=== PATIENT | male | born 1945 | race Caucasian/White ===

== ENCOUNTER 2016-06-25 14:08 | Inpatient (IN) | payer OTHER ==
[2016-06-25 14:18] VITALS: BMI 27.2
--- NOTE | 2016-06-25 14:56 | PDOC ---
History of Present Illness <Ronnie Buenrostro - Last Filed: 06/25/16 16:25> - General History Source: Patient, Old Records Exam Limitations: No Limitations - History of Present Illness Initial Comments: 06/25/16 15:55 The patient is a 71 year old male with a significant past medical history of cholecystectomy, prostate ca s/p prostatectomy, GERD, bilateral cataract surgery who presents to the emergency department sent by his PMD Dr. Goldman for abnormal labs. The patient states he has been experiencing dark urine for the last 6 weeks. He has also been experiencing dyspnea on exertion for the last week, and that is when his daughter convinced him to see his PMD. The patient had routine lab work done yesterday, and was sent to the ED with abnormal labs of Hgb 5.0, WBC 1.4, plt normal, TBili 4.0. Hepatitis panel negative. The patient currently denies any abdominal pain, chest pain, palpitations, or lightheadedness. Per his children, he is more pale than usual and he has also lost some weight. The patient denies dysuria and hematuria. He denies any rectal bleeding. He denies any nausea or vomiting. PMD: Dr. Goldman <Fela De Santiago - Last Filed: 06/25/16 16:36> - General Chief Complaint: Revisit, Lab Variance Stated Complaint: ABNORMAL BLOOD WORK Time Seen by Provider: 06/25/16 14:12 Past History - Past Medical History Anemia: Yes - Surgical History Cholecystectomy: Yes - Psycho/Social/Smoking Cessation Hx Suicidal Ideation: No Smoking History: Never smoked Hx Alcohol Use: No Drug/Substance Use Hx: No Substance Use Type: None <Ronnie Buenrostro - Last Filed: 06/25/16 16:25> <Fela De Santiago - Last Filed: 06/25/16 16:36> - Past Medical History Allergies/Adverse Reactions: Allergies Allergy/AdvReac Type Severity Reaction Status Date / Time No Known Allergies Allergy Verified 06/25/16 14:12 Home Medications: Ambulatory Orders Esomeprazole Magnesium [Nexium] 40 mg PO DAILY 02/06/14 Amoxicillin - [Amoxicillin 500mg Capsule -] 0 mg PO BID 06/25/16 Review of Systems - Review of Systems Able to Perform ROS?: Yes Comments:: 06/25/16 15:55 CONSTITUTIONAL: +Fatigue. No fever, no chills EYES: No visual changes ENT: No ear pain, no sore throat CARDIOVASCULAR: No chest pain, no palpitations RESPIRATORY: No cough, no SOB GI: No abdominal pain, no nausea, no vomiting, no constipation, no diarrhea GENITOURINARY: +Hematuria. No dysuria, no frequency MUSCULOSKELETAL: No back pain, no joint pain, no myalgias SKIN: No rash NEURO: No headache <JonnathanFela - Last Filed: 06/25/16 16:36> *Physical Exam - Vital Signs Last Vital Signs Temp Pulse Resp BP Pulse Ox 98.8 F 72 16 127/53 99 06/25/16 14:12 06/25/16 14:12 06/25/16 14:12 06/25/16 14:12 06/25/16 14:12 <Ronnie Buenrostro - Last Filed: 06/25/16 16:25> - Vital Signs Last Vital Signs Temp Pulse Resp BP Pulse Ox 98.8 F 72 16 127/53 99 06/25/16 14:12 06/25/16 14:12 06/25/16 14:12 06/25/16 14:12 06/25/16 14:12 - Physical Exam Comments: 06/25/16 16:34 CONSTITUTIONAL: +Pale appearing; well-nourished; in no apparent distress. HEAD: Normocephalic; atraumatic EYES: PERRL; EOM intact; +pale conjunctiva ENMT: External appears normal; normal oropharynx NECK: Supple; non-tender; no cervical lymphadenopathy CARD: Normal S1, S2; no murmurs, rubs, or gallops RESP: Normal chest excursion with respiration; breath sounds clear and equal bilaterally; no wheezes, rhonchi, or rales ABD: Soft, non-distended; non-tender; no palpable organomegaly, no palpable hernias EXT: Normal ROM in all four extremities; non-tender to palpation; distal pulses intact SKIN: Warm, dry, no rash NEURO: No focal neurological deficiencies. <Fela De Santiago - Last Filed: 06/25/16 16:36> Heart Score/ECG Review - ECG Intrepretation Comment:: 06/25/16 15:55 Vent rate: 73 bpm AK interval: 128 ms QRS duration: 84 ms Normal sinus rhythm Normal EKG <JonnathanFela - Last Filed: 06/25/16 16:36> ED Treatment Course - LABORATORY CBC & Chemistry Diagram: 06/25/16 14:45 06/25/16 14:45 <Ronnie Buenrostro - Last Filed: 06/25/16 16:25> - LABORATORY CBC & Chemistry Diagram: 06/25/16 14:45 06/25/16 14:45 <JonnathanFela - Last Filed: 06/25/16 16:36> Medical Decision Making - Medical Decision Making 06/25/16 16:30 Patient is a pale appearing 71-year-old male who presents with signs and symptoms of what appears to be acute hemolytic anemia with pallor, dyspnea with minimal exertion, call her colored urine over. Of a month and a half, severe leukopenia and severe anemia. Patient is hemodynamically stable. CBC reveals WBCs of 1.4 and H&H of 4 and 15. Reticulocyte count is noted to be elevated. Total bilirubin is 2.8 which appears to be decreased from value obtained by the primary care physician 24 hours previously. LDH is also noted to be elevated. Haptoglobin is pending. Will discuss with hematology/oncology. Will hold off on transfusing packed cells at this time. <Ronnie Buenrostro - Last Filed: 06/25/16 16:25> - Medical Decision Making 06/25/16 16:[address] Sanz/Dr. Page office at [phone]. Was told Dr. Sanz is in the office and will call back. 06/25/16 16:34 Second call placed to Dr. Sanz office. Awaiting call back. <JonnathanFela - Last Filed: 06/25/16 16:36> *DC/Admit/Observation/Transfer - Discharge Dispostion Admit: Yes - Attestations Physician Attestion: 06/25/16 16:30 The documentation was prepared by the scribe under my direct supervision. I have reviewed the documentation which correctly represents the findings, medical decision-making and critical action taken by me. <Ronnie Buenrostro - Last Filed: 06/25/16 16:25> - Attestations Scribe Attestion: 06/25/16 15:25 Documentation prepared by Fela De Santiago, acting as medical billing supervisor for Ronnie Buenrostro MD. <Fela De Santiago - Last Filed: 06/25/16 16:36> Diagnosis at time of Disposition: Hemolytic anemia Qualifiers: Hemolytic anemia type: acquired, unspecified Qualified Code(s): D59.9 - Acquired hemolytic anemia, unspecified - Referrals Referrals: Bernardo Goldman MD [Primary Care Provider] -
[2016-06-25 15:21] LABS: MCH 38.7 pg (25.7-33.7); MCHC 32.5 g/dl (32.0-35.9); MEAN CELL VOLUME 119.2 fl (80-96); MEAN PLT VOLUME 7.5 fl (7.5-11.1); PLATELET COUNT 201 K/MM3 (134-434); RDW 14.2 % (11.9-15.9)
[2016-06-25 15:31] LABS: ALBUMIN 3.2 g/dl (3.4-5.0); ANION GAP 9 (8-16); CALCIUM 7.7 mg/dL (8.5-10.1); CO2 24 mmol/L (21-32); CREATININE 0.7 mg/dL (0.7-1.3); GLUCOSE,RANDOM 107 mg/dL (74-106); SGOT/AST 41 U/L (15-37); SGPT/ALT 33 U/L (12-78); WHITE BLOOD COUNT 1.5 K/mm3 (4.0-10.0)
[2016-06-25 15:32] LABS: INR 1.33 (0.82-1.09); PROTHROMBIN TIME (PATIENT) 14.7 SEC (9.98-11.88)
[2016-06-25 15:34] LABS: ALK PHOS 89 U/L (45-117); BILIRUBIN,TOTAL 2.8 mg/dL (0.2-1.0); TOT PROT 5.9 g/dl (6.4-8.2); TROPONIN I < 0.02 ng/ml (0.00-0.05)
[2016-06-25 15:58] LABS: LDH 547 U/L (87-241)
--- NOTE | 2016-06-25 16:03 | EKG ---
Test Reason : Blood Pressure : / mmHG Vent. Rate : 073 BPM Atrial Rate : 073 BPM P-R Int : 128 ms QRS Dur : 084 ms QT Int : 402 ms P-R-T Axes : 054 043 024 degrees QTc Int : 442 ms NORMAL SINUS RHYTHM NORMAL ECG NO PREVIOUS ECGS AVAILABLE Confirmed by PHUONG MCCOLLUM MD ([id number]) on 06/25/2016 4:03:25 PM Referred By: Confirmed By:PHUONG MCCOLLUM MD
[2016-06-25 17:58] LABS: OVALOCYTES 1+; PLATELET ESTIMATE ADEQUATE (NORMAL); POIKILOCYTOSIS 1+; POLYCHROMASIA 1+; TEAR DROP CELLS RARE
[2016-06-25] MEDS ORDERED: PANTOPRAZOLE SODIUM 40 MG in SODIUM CHLORIDE 100 ML IVPB SCH (20:00)
[2016-06-25] MEDS ORDERED: PANTOPRAZOLE SODIUM 100 ML IVPB ONE (20:09)
--- NOTE | 2016-06-25 20:20 | CONSULT ---
Consult - text type - Consultation Consultation Note: Patient seen and examined The patient is a 71 year old male with a significant past medical history of cholecystectomy, prostate ca s/p prostatectomy, GERD, bilateral cataract surgery who presents to the emergency department sent by his PMD Dr. Goldman for abnormal labs. The patient states he has been experiencing dark urine for the last few weeks. He has also been experiencing dyspnea on exertion for the last week, and that is when his daughter convinced him to see his PMD. The patient had routine lab work done yesterday, and was sent to the ED with abnormal labs of Hgb 5.0, WBC 1.4, plt normal, TBili 4.0. Hepatitis panel negative. The patient currently denies any abdominal pain, chest pain, palpitations, or lightheadedness. Per his children, he is more pale than usual and he has also lost some weight. The patient denies dysuria and hematuria. He denies any rectal bleeding. He denies any nausea or vomiting. Reports shoulder aches, elbow pains and low back pain he had several episodes last year Also some URI and cough and received 2 doses of amoxicillin Reports exertional SOB/dizziness and paliptations Past History - Past Medical History Anemia: Yes - Surgical History Cholecystectomy: Yes - Psycho/Social/Smoking Cessation Hx nonsmoker Allergies/Adverse Reactions: Allergies Allergy/AdvReac Type Severity Reaction Status Date / Time No Known Allergies Allergy Verified 06/25/16 14:12 Home Medications: Ambulatory Orders Esomeprazole Magnesium [Nexium] 40 mg PO DAILY 02/06/14 Amoxicillin - [Amoxicillin 500mg Capsule -] 0 mg PO BID 06/25/16 *Physical Exam - Vital Signs Last Vital Signs Temp Pulse Resp BP Pulse Ox 98.8 F 72 16 127/53 99 06/25/16 14:12 06/25/16 14:12 06/25/16 14:12 06/25/16 14:12 06/25/16 14:12 HEENT: MAURISIO, EOM Intact Cor: RSR, No murmurs, No gallops Lungs: Clear to P&A Abd: Soft, Normal bowel sounds, No organomegaly Ext:No significant edema Skin: No rashes, Integument intact A/P In brief, 71 y/o with exertional dyspnea, fatigue, mild cough, dark urine, exertional SOB/dizziness, shoulder aches Hgb 4.9/LDH 500s/Increased indirect bili Ankita 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 W/U ongoing to r/o allo ab. discussed with patient and family about transfusiong least incompatible unit Will start allopurinol/steroids/protonix ICU monitoring discussed with icu staff ? autoimmune etiology r/o viral/lymphoproliferative diosrders
[2016-06-25] MEDS: methylPREDNISolone NA SUCC 125 MG/2 ML VIAL IVPB SCH (23:00)
--- NOTE | 2016-06-25 23:09 | CONSULT ---
Consult Consult Specialty:: Pulm/CC - History of Present Illness History of Present Illness: Pt is a 71yr old man with PMHx of gallbladder ca s/p cholecystectomy (1998), prostate ca s/p prostectomy (2004) and GERD. He presents to the ER from PCP office for anemia. In the ER found to have WBC of 1.5 and h/h of 4.9/15, LD 547 , elevated direct and total bili. Pt is hemodynamically stable at rest but becomes very dyspneic with minimal exertion. Admitted to the ICU for further management. Upon assessment, pt is alert, denies chest pain/headache/sob/n/v and endorses BASILIO. 114/55, HR 60s (sinus on tele) 100% on 4LNC, 98.2. - History Source History Provided By: Patient, Medical Record Limitations to Obtaining History: No Limitations - Alcohol/Substance Use Hx Alcohol Use: No - Smoking History Smoking history: Never smoked Home Medications - Allergies Allergies/Adverse Reactions: Allergies Allergy/AdvReac Type Severity Reaction Status Date / Time No Known Allergies Allergy Verified 06/25/16 14:12 - Home Medications Home Medications: Ambulatory Orders Esomeprazole Magnesium [Nexium] 40 mg PO DAILY 02/06/14 Amoxicillin - [Amoxicillin 500mg Capsule -] 0 mg PO BID 06/25/16 Review of Systems - Review of Systems Constitutional: reports: Lethargy, Unintentional Wgt. Loss, Weakness HENT: denies: Epistaxis Cardiovascular: denies: Chest Pain Respiratory: reports: SOB on Exertion Gastrointestinal: reports: Constipation. denies: Nausea, Vomiting Genitourinary: denies: Dysuria Physical Exam Vital Signs: Vital Signs Period Temp Pulse Resp BP Sys/Engel Pulse Ox Last 24 Hr 98.2 F-98.8 F 67-82 16-22 112-127/53-58 95-100 Intake & Output 06/22/16 06/23/16 06/24/16 06/25/16 23:59 23:59 23:59 23:59 Weight 190 lb 1.6 oz Constitutional: Yes: Well Nourished, No Distress, Calm Eyes: Yes: WNL, PERRL HENT: Yes: WNL Neck: Yes: WNL Cardiovascular: Yes: S1, S2, Other (sinus on tele) Respiratory: Yes: CTA Bilaterally, On Nasal O2, SOB on Exertion. No: Rhonchi, SOB, Tachypnea, Wheezes Gastrointestinal: Yes: Normal Bowel Sounds, Soft, Abdomen, Obese ...Rectal Exam: No: Guaiac Negative Renal/: No: CVA Tenderness - Left, CVA Tenderness - Right Musculoskeletal: Yes: WNL Extremities: Yes: WNL Edema: Yes Edema: LLE: Trace, RLE: Trace Peripheral Pulses WNL: Yes (+2 bilateral pedal pulses ) Integumentary: Yes: WNL Neurological: Yes: WNL Psychiatric: Yes: WNL Labs: Abnormal Lab Results 06/25/16 06/25/16 06/25/16 14:30 14:45 14:45 WBC 1.5 L RBC 1.26 L Hgb 4.9 L* Hct 15.0 L MCV 119.2 H Retic Count 6.70 H INR 1.33 H Random Glucose Calcium Total Bilirubin Direct Bilirubin AST LD Total Total Protein Albumin Antibody Screen Prewarmed Antibody Srcn Crossmatch 06/25/16 06/25/16 06/25/16 14:45 15:12 15:56 WBC RBC Hgb Hct MCV Retic Count INR Random Glucose 107 H Calcium 7.7 L Total Bilirubin 2.8 H Direct Bilirubin 1.0 H AST 41 H LD Total 547 H Total Protein 5.9 L Albumin 3.2 L Antibody Screen Positive H Prewarmed Antibody Srcn Positive H Crossmatch See Detail See Detail Imaging - Results Chest X-ray: Report Reviewed, Image Reviewed Assessment/Plan Pt is a 71yr old man with PMHx of gallbladder ca s/p cholecystectomy (1998), prostate ca s/p prostectomy (2004) and GERD. Now in the ICU for profound hemolytic anemia and leukopenia. Pulm: -O2 prn for sat >94% -Incentive spirometer ID: -f/u cultures -f/u CRP -Low threshold to start antibiotics (currently afebrile, vital signs stable, no known source of infection) Heme -Dr Sanz following -Steroids/allopurinal/transfusion per heme Renal -IVF as tolerated -Replete electrolytes prn Neuro -Pain management Prophylactic -Reverse contact precautions -Fall precautions -Continue home ppi
[2016-06-25] MEDS: ALLOPURINOL 300 MG TABLET (FP) PO SCH (23:47)
[2016-06-25] MEDS: LACTATED RINGERS SOLUTION 1,000 ML IV SCH (23:50)
[2016-06-26] MEDS ORDERED: guaiFENesin/D-METHORPHAN HB 10 ML UNIT-DOSE CUPS PO PRN (00:03)
[2016-06-26] MEDS ORDERED: ACETAMINOPHEN 500 MG TABLET (FP) PO ONE (01:54)
[2016-06-26 08:41] LABS: BASOPHIL 0.2 % (0-2.0); MCH 34.8 pg (25.7-33.7); MCHC 32.9 g/dl (32.0-35.9); MEAN CELL VOLUME 105.7 fl (80-96); MEAN PLT VOLUME 7.5 fl (7.5-11.1); NEUTROPHILS 76.7 % (42.8-82.8); PLATELET COUNT 198 K/MM3 (134-434); RDW 27.4 % (11.9-15.9)
[2016-06-26 08:47] LABS: WHITE BLOOD COUNT 1.6 K/mm3 (4.0-10.0)
[2016-06-26] MEDS ORDERED: PIPERACILLIN/TAZOB 3.375 GM 50 ML IVPB ONE (08:55)
[2016-06-26] MEDS ORDERED: PT OWN MED DRAWER 7, Y5N ONE (08:55)
[2016-06-26 09:07] LABS: ALBUMIN 3.1 g/dl (3.4-5.0); ANION GAP 6 (8-16); CALCIUM 7.9 mg/dL (8.5-10.1); CO2 26 mmol/L (21-32); CREATININE 0.7 mg/dL (0.7-1.3); GLUCOSE,RANDOM 132 mg/dL (74-106); SGOT/AST 38 U/L (15-37); SGPT/ALT 34 U/L (12-78); URIC ACID 3.4 mg/dL (2.6-7.2)
[2016-06-26] MEDS: FOLIC ACID 1 MG TABLET (FP) PO SCH (09:07)
[2016-06-26] MEDS: methylPREDNISolone NA SUCC 125 MG/2 ML VIAL IVPB SCH (09:07)
[2016-06-26 09:11] LABS: ALK PHOS 95 U/L (45-117); BILIRUBIN,TOTAL 2.7 mg/dL (0.2-1.0); LDH 526 U/L (87-241); MAGNESIUM 2.1 mg/dL (1.8-2.4); PHOSPHOROUS 3.6 mg/dL (2.5-4.9); TROPONIN I < 0.02 ng/ml (0.00-0.05)
[2016-06-26 09:18] LABS: INR 1.28 (0.82-1.09); PROTHROMBIN TIME (PATIENT) 14.2 SEC (9.98-11.88)
[2016-06-26 09:20] LABS: ACTIVATED PTT 23.3 SECONDS (26.9-34.4)
--- NOTE | 2016-06-26 09:25 | PN ---
Progress Note (short form) - Note Progress Note: ID Full note dictated Gabby positive hemolytic anemia Describes recent URI along with his son in law and daughter having the same symptoms couph chest congestion coryza Selected Entries 06/25/16 06/25/16 14:12 21:29 Temperature 98.8 F Pulse Rate 72 Pulse Rate [ 75 Left Apical] Blood Pressure 112/58 [Left Arm] Exam Rales RLL Cor S1 S2 Abd Soft nontender Microbiology 06/26/16 02:36 Nasopharyngeal Swab Influenza Types A,B Antigen (PEPE) - Final 06/26/16 02:36 Nasopharyngeal Swab - Final Laboratory Tests 06/25/16 06/26/16 14:45 08:17 Hgb 6.1 L* D MCV 105.7 H MCHC 32.9 Plt Count 198 BUN 13 Creatinine 0.7 Total Bilirubin 2.8 H Direct Bilirubin 1.0 H LD Total 547 H Assessment "Warm" Cooms positive hemolytic anemia less likely Mycoplasma related ? Pneumonia by exam Plan Cold agglutinins Mycoplasma PCR in viral kit Problem List - Problems (1) Hemolytic anemia Code(s): D58.9 - HEREDITARY HEMOLYTIC ANEMIA, UNSPECIFIED Qualifiers: Hemolytic anemia type: acquired, unspecified Qualified Code(s): D59.9 - Acquired hemolytic anemia, unspecified; D59 - Acquired hemolytic anemia (2) Upper respiratory disease Code(s): J39.9 - DISEASE OF UPPER RESPIRATORY TRACT, UNSPECIFIED
[2016-06-26] MEDS: PANTOPRAZOLE SODIUM 100 ML IVPB SCH (09:51)
[2016-06-26] MEDS ORDERED: methylPREDNISolone NA SUCC 125 MG/2 ML VIAL IVPB SCH (10:00)
[2016-06-26] MEDS: ALLOPURINOL 300 MG TABLET (FP) PO SCH (10:56)
--- NOTE | 2016-06-26 11:22 | HP ---
Admitting History and Physical - Primary Care Physician PCP: Bernardo Goldman - Admission Chief Complaint: dark color urine and SOB - abnormal labs History of Present Illness: ER HISTORY General History Source: Patient, Old Records Exam Limitations: No Limitations - History of Present Illness Initial Comments: 06/25/16 15:55 The patient is a 71 year old male with a significant past medical history of cholecystectomy, prostate ca s/p prostatectomy, GERD, bilateral cataract surgery who presents to the emergency department sent by his PMD Dr. Goldman for abnormal labs. The patient states he has been experiencing dark urine for the last 6 weeks. He has also been experiencing dyspnea on exertion for the last week, and that is when his daughter convinced him to see his PMD. The patient had routine lab work done yesterday, and was sent to the ED with abnormal labs of Hgb 5.0, WBC 1.4, plt normal, TBili 4.0. Hepatitis panel negative. The patient currently denies any abdominal pain, chest pain, palpitations, or lightheadedness. Per his children, he is more pale than usual and he has also lost some weight. The patient denies dysuria and hematuria. He denies any rectal bleeding. He denies any nausea or vomiting. Pt seen by me in ICU On Neutrapenic precautions. Pt gives a history of cold like symptoms of cough, runny nose, congestion a few weeks ago , was taking OTC meds for it. His family members also had same symptoms prior. He is admitted to ICU for hemolytic anemia. Denies abd pain , dizziness, SOB. His urine is dark. No BM today Seen by Hematology and received one unit of PRBC History Source: Patient Limitations to Obtaining History: No Limitations - Past Medical History Gastrointestinal: Yes: GERD Renal/: Yes: Cancer (prostate CA s/p prostatectomy) Additional Past Medical History: B/L cataract extraction - Past Surgical History Past Surgical History: Yes: Cataract Removal - Smoking History Smoking history: Never smoked - Alcohol/Substance Use Hx Alcohol Use: No Home Medications - Allergies Allergies/Adverse Reactions: Allergies Allergy/AdvReac Type Severity Reaction Status Date / Time No Known Allergies Allergy Verified 06/25/16 14:12 - Home Medications Home Medications: Ambulatory Orders Esomeprazole Magnesium [Nexium] 40 mg PO DAILY 02/06/14 Amoxicillin - [Amoxicillin 500mg Capsule -] 0 mg PO BID 06/25/16 Review of Systems - Review of Systems Constitutional: reports: Unintentional Wgt. Loss. denies: Chills, Fever, Lethargy, Loss of Appetite, Weakness Cardiovascular: reports: Shortness of Breath. denies: Chest Pain Respiratory: denies: Cough, Hemoptysis, Wheezing Neurological: denies: Dizziness Physical Examination Vital Signs: Vital Signs Temperature 98.0 F 06/26/16 10:00 Pulse Rate 60 06/26/16 10:00 Respiratory Rate 20 06/26/16 10:00 Blood Pressure 111/83 06/26/16 10:00 O2 Sat by Pulse Oximetry (%) 99 06/26/16 11:04 Constitutional: Yes: No Distress, Calm Cardiovascular: Yes: Regular Rate and Rhythm Respiratory: Yes: CTA Bilaterally Gastrointestinal: Yes: Normal Bowel Sounds, Soft. No: Distention, Tenderness Edema: No ...Motor Strength: WNL Psychiatric: Yes: Alert, Oriented Labs: CBC, BMP 06/26/16 08:17 06/26/16 08:17 Imaging - Results Chest X-ray: Image Reviewed (no infiltrate) Cat Scan: Report Reviewed EKG: Image Reviewed (NSR) Problem List - Problems (1) Hemolytic anemia Code(s): D58.9 - HEREDITARY HEMOLYTIC ANEMIA, UNSPECIFIED Qualifiers: Hemolytic anemia type: acquired, unspecified Qualified Code(s): D59.9 - Acquired hemolytic anemia, unspecified; D59 - Acquired hemolytic anemia (2) Upper respiratory disease Code(s): J39.9 - DISEASE OF UPPER RESPIRATORY TRACT, UNSPECIFIED (3) Pneumonia Code(s): J18.9 - PNEUMONIA, UNSPECIFIED ORGANISM (4) Pleural effusion Code(s): J90 - PLEURAL EFFUSION, NOT ELSEWHERE CLASSIFIED (5) Prostate CA Code(s): C61 - MALIGNANT NEOPLASM OF PROSTATE Assessment/Plan PLAN S/p 1 PRBC ICU , ID , Hematology eval noted work up in progress Gabby positive ICU monitoring Solumedrol iv fluids May transfuse one more if ok with Hematology DVT prophylaxis-- SCD
--- NOTE | 2016-06-26 13:18 | PN ---
Progress Note (short form) - Note Progress Note: PAtient seen and examined Had an episode of chest pain/shortness of breath on walking Last Vital Signs Temp Pulse Resp BP Pulse Ox 98.0 F 79 20 114/58 99 06/26/16 10:00 06/26/16 12:00 06/26/16 12:00 06/26/16 12:00 06/26/16 11:04 HEENT: MAURISIO, EOM Intact Oropharynx: No thrush, No mucositis Cor: RSR, No murmurs, No gallops Lungs: Clear to P&A Abd: Soft, Normal bowel sounds, No organomegaly no c/c/edema Abnormal Lab Results 06/25/16 06/25/16 06/25/16 14:30 14:45 14:45 WBC 1.5 L RBC 1.26 L Hgb 4.9 L* Hct 15.0 L MCV 119.2 H RDW Monocytes % ESR Retic Count 6.70 H INR 1.33 H PTT (Actin FS) Chloride Anion Gap Random Glucose Calcium Total Bilirubin Direct Bilirubin AST LD Total C-Reactive Protein Total Protein Albumin Antibody Screen Prewarmed Antibody Srcn Direct Antiglob Test Crossmatch 06/25/16 06/25/16 06/25/16 14:45 14:45 15:12 WBC RBC Hgb Hct MCV RDW Monocytes % ESR Retic Count INR PTT (Actin FS) Chloride Anion Gap Random Glucose 107 H Calcium 7.7 L Total Bilirubin 2.8 H Direct Bilirubin 1.0 H AST 41 H LD Total 547 H C-Reactive Protein 3.2 H Total Protein 5.9 L Albumin 3.2 L Antibody Screen Positive H Prewarmed Antibody Srcn Positive H Direct Antiglob Test Crossmatch See Detail 06/25/16 06/25/16 06/26/16 15:56 17:28 08:17 WBC 1.6 L RBC 1.76 L D Hgb 6.1 L* D Hct 18.6 L D MCV 105.7 H RDW 27.4 H Monocytes % 1.5 L D ESR Retic Count INR PTT (Actin FS) Chloride Anion Gap Random Glucose Calcium Total Bilirubin Direct Bilirubin AST LD Total C-Reactive Protein Total Protein Albumin Antibody Screen Prewarmed Antibody Srcn Direct Antiglob Test Positive H Crossmatch See Detail See Detail 06/26/16 06/26/16 06/26/16 08:17 08:17 08:17 WBC RBC Hgb Hct MCV RDW Monocytes % ESR > 130 H Retic Count INR PTT (Actin FS) Chloride 109 H Anion Gap 6 L Random Glucose 132 H D Calcium 7.9 L Total Bilirubin 2.7 H Direct Bilirubin AST 38 H LD Total 526 H C-Reactive Protein 3.0 H D Total Protein 6.0 L Albumin 3.1 L Antibody Screen Prewarmed Antibody Srcn Direct Antiglob Test Crossmatch 06/26/16 08:30 WBC RBC Hgb Hct MCV RDW Monocytes % ESR Retic Count INR 1.28 H PTT (Actin FS) 23.3 L Chloride Anion Gap Random Glucose Calcium Total Bilirubin Direct Bilirubin AST LD Total C-Reactive Protein Total Protein Albumin Antibody Screen Prewarmed Antibody Srcn Direct Antiglob Test Crossmatch Current Medications Allopurinol (Zyloprim -) 300 mg PO DAILY [facility] Last Admin: 06/26/16 10:56 Dose: 300 mg Folic Acid (Folic Acid -) 1 mg PO DAILY [facility] Last Admin: 06/26/16 09:07 Dose: 1 mg Guaifenesin (Robitussin Dm -) 5 ml PO Q6H PRN PRN Reason: COUGH Last Admin: 06/26/16 00:20 Dose: 5 ml Pantoprazole Sodium (Protonix 40mg Ivpb (Pre-Docked)) 100 mls @ 200 mls/hr IVPB DAILY [facility] Last Admin: 06/26/16 09:51 Dose: 200 mls/hr Lactated Ringer's (Lactated Ringers Solution) 1,000 mls @ 50 mls/hr IV ASDIR [facility] Last Admin: 06/25/16 23:50 Dose: 50 mls/hr Methylprednisolone Sodium Succinate (Solu-Medrol -) 45 mg IVPB BID [facility] A/P 71 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 auto immune disorder
--- NOTE | 2016-06-26 13:24 | PN ---
Teaching Attending Note Name of Resident: Michael Phoenix ATTENDING PHYSICIAN STATEMENT I saw and evaluated the patient. I reviewed the resident's note and discussed the case with the resident. I agree with the resident's findings and plan as documented. SUBJECTIVE: Patient seen and examined in the ICU. Awake and alert. Denies CP or SOB. Some dry cough. Hgb ; 6.1. pRBCs are pending. No BM but had one yesterday w/o blood. No hematuria. Intake & Output 06/23/16 06/24/16 06/25/16 06/26/16 23:59 23:59 23:59 23:59 Intake Total 300 Output Total 400 1200 Balance -400 -900 Weight 190 lb 1.6 oz 189 lb 4.8 oz Last Vital Signs Temp Pulse Resp BP Pulse Ox 98.0 F 79 20 114/58 99 06/26/16 10:00 06/26/16 12:00 06/26/16 12:00 06/26/16 12:00 06/26/16 11:04 Active Medications Allopurinol (Zyloprim -) 300 mg PO DAILY [facility] Last Admin: 06/26/16 10:56 Dose: 300 mg Folic Acid (Folic Acid -) 1 mg PO DAILY [facility] Last Admin: 06/26/16 09:07 Dose: 1 mg Guaifenesin (Robitussin Dm -) 5 ml PO Q6H PRN PRN Reason: COUGH Last Admin: 06/26/16 00:20 Dose: 5 ml Pantoprazole Sodium (Protonix 40mg Ivpb (Pre-Docked)) 100 mls @ 200 mls/hr IVPB DAILY [facility] Last Admin: 06/26/16 09:51 Dose: 200 mls/hr Lactated Ringer's (Lactated Ringers Solution) 1,000 mls @ 50 mls/hr IV ASDIR [facility] Last Admin: 06/25/16 23:50 Dose: 50 mls/hr Methylprednisolone Sodium Succinate (Solu-Medrol -) 45 mg IVPB BID [facility] Constitutional: Yes: NAD, (+) Pallor Eyes: Yes: WNL, PERRL HENT: Yes: WNL Neck: Yes: WNL Cardiovascular: Yes: S1, S2, Other (sinus on tele) Respiratory: Yes: CTA Bilaterally, On Nasal O2, SOB on Exertion. No: Rhonchi, SOB, Tachypnea, Wheezes Gastrointestinal: Yes: Normal Bowel Sounds, Soft, Abdomen, Obese ...Rectal Exam: No: Guaiac Negative Renal/: No: CVA Tenderness - Left, CVA Tenderness - Right Musculoskeletal: Yes: WNL Extremities: Yes: WNL Edema: Yes Edema: LLE: Trace, RLE: Trace Peripheral Pulses WNL: Yes (+2 bilateral pedal pulses ) Integumentary: Yes: WNL Neurological: Yes: WNL Psychiatric: Yes: WNL Labs: Laboratory Results - last 24 hr 06/25/16 06/25/16 06/25/16 14:30 14:45 14:45 WBC 1.5 L RBC 1.26 L Hgb 4.9 L* Hct 15.0 L MCV 119.2 H MCHC 32.5 RDW 14.2 Plt Count 201 MPV 7.5 Neutrophils % 60.0 Lymphocytes % 30.0 Monocytes % 10.0 Eosinophils % Basophils % Differential Comment Manual diff done Platelet Estimate Adequate Platelet Comment Few giant plts Polychromasia 1+ Poikilocytosis 1+ Macrocytosis 3+ Tear Drop Cells Rare Ovalocytes 1+ Morphology Comment Slide scanned ESR Retic Count 6.70 H INR 1.33 H PTT (Actin FS) Fibrinogen Sodium Potassium Chloride Carbon Dioxide Anion Gap BUN Creatinine Creat Clearance w eGFR Random Glucose Uric Acid Calcium Phosphorus Magnesium Total Bilirubin Direct Bilirubin AST ALT Alkaline Phosphatase LD Total Creatine Kinase Troponin I C-Reactive Protein Total Protein Albumin Vitamin B12 Rheumatoid Factor Monoscreen Blood Type Antibody Screen Prewarmed Antibody Srcn Direct Antiglob Test Crossmatch Spec Expiration Date 06/25/16 06/25/16 06/25/16 14:45 14:45 15:12 WBC RBC Hgb Hct MCV MCHC RDW Plt Count MPV Neutrophils % Lymphocytes % Monocytes % Eosinophils % Basophils % Differential Comment Platelet Estimate Platelet Comment Polychromasia Poikilocytosis Macrocytosis Tear Drop Cells Ovalocytes Morphology Comment ESR Retic Count INR PTT (Actin FS) Fibrinogen Sodium 140 Potassium 3.8 Chloride 107 Carbon Dioxide 24 Anion Gap 9 BUN 13 Creatinine 0.7 Creat Clearance w eGFR > 60 Random Glucose 107 H Uric Acid Calcium 7.7 L Phosphorus Magnesium Total Bilirubin 2.8 H Direct Bilirubin 1.0 H AST 41 H ALT 33 Alkaline Phosphatase 89 LD Total 547 H Creatine Kinase 54 Troponin I < 0.02 C-Reactive Protein 3.2 H Total Protein 5.9 L Albumin 3.2 L Vitamin B12 Rheumatoid Factor Monoscreen Blood Type O POSITIVE Antibody Screen Positive H Prewarmed Antibody Srcn Positive H Direct Antiglob Test Crossmatch See Detail Spec Expiration Date 06/25/16 06/25/16 06/25/16 15:40 15:56 17:28 WBC RBC Hgb Hct MCV MCHC RDW Plt Count MPV Neutrophils % Lymphocytes % Monocytes % Eosinophils % Basophils % Differential Comment Platelet Estimate Platelet Comment Polychromasia Poikilocytosis Macrocytosis Tear Drop Cells Ovalocytes Morphology Comment ESR Retic Count INR PTT (Actin FS) Fibrinogen Sodium Potassium Chloride Carbon Dioxide Anion Gap BUN Creatinine Creat Clearance w eGFR Random Glucose Uric Acid Calcium Phosphorus Magnesium Total Bilirubin Direct Bilirubin Cancelled AST ALT Alkaline Phosphatase LD Total Cancelled Creatine Kinase Troponin I C-Reactive Protein Total Protein Albumin Vitamin B12 Rheumatoid Factor Monoscreen Blood Type O POSITIVE Antibody Screen Prewarmed Antibody Srcn Direct Antiglob Test Positive H Crossmatch See Detail See Detail Spec Expiration Date 06/25/16 06/26/16 06/26/16 21:30 08:17 08:17 WBC 1.6 L RBC 1.76 L D Hgb 6.1 L* D Hct 18.6 L D MCV 105.7 H MCHC 32.9 RDW 27.4 H Plt Count 198 MPV 7.5 Neutrophils % 76.7 D Lymphocytes % 21.6 D Monocytes % 1.5 L D Eosinophils % 0.0 Basophils % 0.2 Differential Comment Platelet Estimate Platelet Comment Polychromasia Poikilocytosis Macrocytosis Tear Drop Cells Ovalocytes Morphology Comment ESR Retic Count INR PTT (Actin FS) Fibrinogen Sodium 141 Potassium 4.2 Chloride 109 H Carbon Dioxide 26 Anion Gap 6 L BUN 10 D Creatinine 0.7 Creat Clearance w eGFR > 60 Random Glucose 132 H D Uric Acid 3.4 Calcium 7.9 L Phosphorus Magnesium Total Bilirubin 2.7 H Direct Bilirubin AST 38 H ALT 34 Alkaline Phosphatase 95 LD Total 526 H Creatine Kinase 43 Troponin I < 0.02 C-Reactive Protein Total Protein 6.0 L Albumin 3.1 L Vitamin B12 564 Rheumatoid Factor Monoscreen Blood Type Antibody Screen Prewarmed Antibody Srcn Direct Antiglob Test Crossmatch Spec Expiration Date 06/26/16 06/26/16 06/26/16 08:17 08:17 08:17 WBC RBC Hgb Hct MCV MCHC RDW Plt Count MPV Neutrophils % Lymphocytes % Monocytes % Eosinophils % Basophils % Differential Comment Platelet Estimate Platelet Comment Polychromasia Poikilocytosis Macrocytosis Tear Drop Cells Ovalocytes Morphology Comment ESR > 130 H Retic Count INR PTT (Actin FS) Fibrinogen Sodium Potassium Chloride Carbon Dioxide Anion Gap BUN Creatinine Creat Clearance w eGFR Random Glucose Uric Acid Calcium Phosphorus 3.6 Magnesium 2.1 Total Bilirubin Direct Bilirubin AST ALT Alkaline Phosphatase LD Total Creatine Kinase Cancelled Troponin I Cancelled C-Reactive Protein 3.0 H D Total Protein Albumin Vitamin B12 Rheumatoid Factor < 10.0 Monoscreen Blood Type Antibody Screen Prewarmed Antibody Srcn Direct Antiglob Test Crossmatch Spec Expiration Date 06/26/16 06/26/16 08:30 10:35 WBC RBC Hgb Hct MCV MCHC RDW Plt Count MPV Neutrophils % Lymphocytes % Monocytes % Eosinophils % Basophils % Differential Comment Platelet Estimate Platelet Comment Polychromasia Poikilocytosis Macrocytosis Tear Drop Cells Ovalocytes Morphology Comment ESR Retic Count INR 1.28 H PTT (Actin FS) 23.3 L Fibrinogen 305.0 Sodium Potassium Chloride Carbon Dioxide Anion Gap BUN Creatinine Creat Clearance w eGFR Random Glucose Uric Acid Calcium Phosphorus Magnesium Total Bilirubin Direct Bilirubin AST ALT Alkaline Phosphatase LD Total Creatine Kinase Troponin I C-Reactive Protein Total Protein Albumin Vitamin B12 Rheumatoid Factor Monoscreen Negative Blood Type Antibody Screen Prewarmed Antibody Srcn Direct Antiglob Test Crossmatch Spec Expiration Date Assessment/Plan Pt is a 71yr old man with PMHx of gallbladder ca s/p cholecystectomy (1998), prostate ca s/p prostectomy (2004) and GERD. Now in the ICU for profound hemolytic anemia and leukopenia. Problem List - Problems (1) Hemolytic anemia Code(s): D58.9 - HEREDITARY HEMOLYTIC ANEMIA, UNSPECIFIED Qualifiers: Hemolytic anemia type: acquired, unspecified Qualified Code(s): D59.9 - Acquired hemolytic anemia, unspecified; D59 - Acquired hemolytic anemia (2) Upper respiratory disease Code(s): J39.9 - DISEASE OF UPPER RESPIRATORY TRACT, UNSPECIFIED IMP: Gallbladder CA Cholecystectomy Prostate CA Prostatectomy GERD RLL PNA suspected Pleural Effusion PLAN: Transfusional support Medrol Allopurinol O2 as needed Check cultures SCDs IVF Dr Sevilla CCTime 35"
[2016-06-26] MEDS ORDERED: ACETAMINOPHEN 325 MG TABLET (FP) ONE (14:08)
[2016-06-26] MEDS ORDERED: ACETAMINOPHEN 325 MG TABLET (FP) PO ONE (14:21)
--- NOTE | 2016-06-26 15:28 | PN ---
Physical Exam: SUBJECTIVE: Patient seen and examined at bedside in ICU this morning. AAO and in a pleasant mood. States he feels much better than yesterday. Afebrile overnight without any adverse reactions to transfusions or medications given. Understands planned course of treatment & need for further diagnostic testing. Agrees with plan of care. OBJECTIVE: Vital Signs Period Temp Pulse Resp BP Sys/Engel Pulse Ox Last 24 Hr 97.6 F-98.7 F 56-82 18-23 111-142/47-83 95-100 GENERAL: The patient is awake, alert, and fully oriented, in no acute distress. HEENT: Atraumatic, EOMI, PERRLA, Moist membranes, no lymphadenopathy noted LUNGS: Minimal rales noted at right lung base, Normal breath sounds left lung HEART: Regular rate and rhythm, S1, S2 without murmur, rub or gallop. ABDOMEN: Soft, nontender, nondistended, normoactive bowel sounds EXTREMITIES: 2+ pulses, warm, well-perfused, no edema. NEUROLOGICAL: Cranial nerves II through XII grossly intact. Normal speech, gait not observed. PSYCH: Normal mood, normal affect. SKIN: Warm, dry, normal turgor, no rashes or lesions noted Laboratory Results - last 24 hr 06/25/16 06/26/16 06/26/16 21:30 08:17 08:17 WBC 1.6 L RBC 1.76 L D Hgb 6.1 L* D Hct 18.6 L D MCV 105.7 H MCHC 32.9 RDW 27.4 H Plt Count 198 MPV 7.5 Neutrophils % 76.7 D Lymphocytes % 21.6 D Monocytes % 1.5 L D Eosinophils % 0.0 Basophils % 0.2 ESR INR PTT (Actin FS) Fibrinogen Sodium 141 Potassium 4.2 Chloride 109 H Carbon Dioxide 26 Anion Gap 6 L BUN 10 D Creatinine 0.7 Creat Clearance w eGFR > 60 Random Glucose 132 H D Uric Acid 3.4 Calcium 7.9 L Phosphorus Magnesium Total Bilirubin 2.7 H AST 38 H ALT 34 Alkaline Phosphatase 95 LD Total 526 H Creatine Kinase 43 Troponin I < 0.02 C-Reactive Protein Total Protein 6.0 L Albumin 3.1 L Vitamin B12 564 Rheumatoid Factor Monoscreen 06/26/16 06/26/16 06/26/16 08:17 08:17 08:17 WBC RBC Hgb Hct MCV MCHC RDW Plt Count MPV Neutrophils % Lymphocytes % Monocytes % Eosinophils % Basophils % ESR > 130 H INR PTT (Actin FS) Fibrinogen Sodium Potassium Chloride Carbon Dioxide Anion Gap BUN Creatinine Creat Clearance w eGFR Random Glucose Uric Acid Calcium Phosphorus 3.6 Magnesium 2.1 Total Bilirubin AST ALT Alkaline Phosphatase LD Total Creatine Kinase Cancelled Troponin I Cancelled C-Reactive Protein 3.0 H D Total Protein Albumin Vitamin B12 Rheumatoid Factor < 10.0 Monoscreen 06/26/16 06/26/16 08:30 10:35 WBC RBC Hgb Hct MCV MCHC RDW Plt Count MPV Neutrophils % Lymphocytes % Monocytes % Eosinophils % Basophils % ESR INR 1.28 H PTT (Actin FS) 23.3 L Fibrinogen 305.0 Sodium Potassium Chloride Carbon Dioxide Anion Gap BUN Creatinine Creat Clearance w eGFR Random Glucose Uric Acid Calcium Phosphorus Magnesium Total Bilirubin AST ALT Alkaline Phosphatase LD Total Creatine Kinase Troponin I C-Reactive Protein Total Protein Albumin Vitamin B12 Rheumatoid Factor Monoscreen Negative Active Medications Generic Name Dose Route Start Last Admin Trade Name Freq PRN Reason Stop Dose Admin Allopurinol 300 mg 06/25/16 22:00 06/26/16 10:56 Zyloprim - PO 300 mg DAILY TARYN Administration Folic Acid 1 mg 06/26/16 10:00 06/26/16 09:07 Folic Acid - PO 1 mg DAILY TARYN Administration Guaifenesin 5 ml 06/26/16 00:03 06/26/16 00:20 Robitussin Dm - PO 5 ml Q6H PRN Administration COUGH Pantoprazole Sodium 100 mls @ 200 mls/hr 06/26/16 10:00 06/26/16 09:51 Protonix 40mg Ivpb (Pre-Docked) IVPB 200 mls/hr DAILY TARYN Administration Lactated Ringer's 1,000 mls @ 50 mls/hr 06/25/16 23:30 06/25/16 23:50 Lactated Ringers Solution IV 50 mls/hr ASDIR TARYN Administration Methylprednisolone Sodium Succinate 45 mg 06/27/16 10:00 Solu-Medrol - IVPB BID TARYN ASSESSMENT/PLAN: 71 year old male with a significant past medical history of cholecystectomy, prostate ca s/p prostatectomy, GERD who presented to ED with abnormal labs of Hgb 4.9, WBC 1.5, plt normal, TBili 4.0. Reported URI symptoms for last week. Being treated for acute hemolytic anemia, likely autoimmune etiology. #Acute hemolytic Anemia, likely autoimmune etiology -Rheumatology consult requested -currently on Allopurinol, Solumedrol BID -given 1u PRBC yesterday, will receive 1 more today -trend labs -hepatitis panel (-) -CMV, EBV, mycoplasma pending -Heme/Onc following #RLL pneumonia -awaiting culture results -incentive spirometer -keep O2 >94% Prophylaxis/FEN -SCD, PPI -Neutropenic diet, IVF LR @50mls/hr Visit type - Emergency Visit Emergency Visit: Yes ED Registration Date: 06/25/16 Care time: The patient presented to the Emergency Department on the above date and was hospitalized for further evaluation of their emergent condition. - New Patient This patient is new to me today: Yes Date on this admission: 06/26/16 - Critical Care Critical Care patient: Yes Total Critical Care Time (in minutes): 40 Critical Care Statement: The care of this patient involved high complexity decision making to prevent further life threatening deterioration of the patient 's condition and/or to evalute & treat vital organ system(s) failure or risk of failure.
--- NOTE | 2016-06-26 15:33 | CONS ---
INFECTIOUS DISEASE CONSULTATION DATE OF CONSULTATION: DATE OF DICTATION: 06/26/2016 This is a 71-year-old male who I am asked to see for evaluation of hemolytic anemia with possible preceding infection. This 71-year-old [place] man has been in generally good health until last week when he developed onset of a respiratory illness with coryza and a nonproductive cough. He lives with his daughter who recently was also ill with a respiratory illness, along with her . There was no diagnosis of flu given. Subsequently, the patient several days ago developed worsening shortness of breath, fatigue, and dark urine. He came to the emergency room where his hemoglobin was noted to be 4.9 g with an LDH in the 500s and an indirect bilirubin which was elevated, Gabby positive. A diagnosis of autoimmune hemolytic anemia, presumably warm, was made, and the patient was placed on allopurinol, steroids, and Protonix. I am asked to see him for further evaluation. He has no fever nor did he report fever previously. He has no sputum production, abdominal pain, diarrhea, rash. He has no history of recent travel. He is retired, having worked at [employer] for many years and [employer] before that. Has no HIV risk factors. No pets, with some outdoor gardening exposure. There was no history of recent tick bites. PAST MEDICAL HISTORY: Includes prostate cancer in remission, cholecystectomy, GERD, status post prostatectomy. MEDICATIONS: None. ALLERGIES: None. SOCIAL HISTORY: Never smoked. Retired. No alcohol. FAMILY HISTORY: Reviewed, noncontributory. REVIEW OF SYSTEMS: Respiratory: Shortness of breath, nonproductive cough. Cardiac: No chest pain, palpitations, syncope. Gastrointestinal: No abdominal pain, weight loss, nausea, vomiting, diarrhea. Genitourinary: No dysuria, hematuria, urinary frequency. PHYSICAL EXAMINATION: General: He was an alert male in no acute distress. Vital Signs: His temperature was 98.1, pulse 60, blood pressure 123/64, respirations 20. Neck: Supple. Lungs: Clear to percussion with rales noted in the right lower lobe. Heart: S1, S2. Regular rhythm without murmur. Abdomen: Soft, nontender, without hepatosplenomegaly. Extremities: Without clubbing, cyanosis, or edema. LABORATORY DATA: The white count was 1.5 with a hemoglobin of 4.9, platelets of 201, polys 60%, lymphs 30, monocytes 10. BUN 10, creatinine 0.7. HDL 526, AST 38. CRP pending. Hepatitis markers pending. Two sets of blood cultures pending. Influenza screening: Rapid test negative. Chest x-ray: Mild cardiomegaly. No acute lung disease. 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 Possibility of a preceding viral infection considered. Mycoplasma also considered, although this should be cold agglutinin positive rather than warm. Physical findings on exam suggest possibility of a right lower lobe infiltrate. He is afebrile. Additionally, the degree of neutropenia seems unusual for hemolytic anemia and would consider the possibility of a concomitant viral infection such as Selvin-Reveles virus or cytomegalovirus. We will send serology for CMV, mycoplasma, and EBV. Cold agglutinins ordered. Discussed with Dr. Heck. We will send a viral respiratory panel along with mycoplasma PCR, though again mycoplasma would seem less likely here. If he should have fever, will need broad-spectrum antibiotics for "neutropenic coverage." ABRAM MONREAL M.D. [id number]
[2016-06-26 22:02] LABS: URINE APPEARANCE CLEAR; URINE BILIRUBIN NEGATIVE (NEGATIVE); URINE BLOOD NEGATIVE (NEGATIVE); URINE COLOR AMBER; URINE GLUCOSE (UA) NEGATIVE (NEGATIVE); URINE KETONE NEGATIVE (NEGATIVE); URINE LEUK ESTERASE NEGATIVE (NEGATIVE); URINE NITRITE NEGATIVE (NEGATIVE); URINE PROTEIN NEGATIVE (NEGATIVE); URINE UROBILINOGEN 4.0 E.U/dl E.U./dl (0.2-1.0)
[2016-06-27] MEDS: LACTATED RINGERS SOLUTION 1,000 ML IV SCH (05:50)
[2016-06-27 06:06] LABS: HEP B SURFACE AB Non Reactive (.)
[2016-06-27 06:33] LABS: BASOPHIL 0.1 % (0-2.0); EOSINOPHIL 0.1 % (0-4.5); MCH 34.8 pg (25.7-33.7); MCHC 33.1 g/dl (32.0-35.9); MEAN CELL VOLUME 104.9 fl (80-96); MEAN PLT VOLUME 7.7 fl (7.5-11.1); NEUTROPHILS 78.2 % (42.8-82.8); PLATELET COUNT 188 K/MM3 (134-434); RDW 28.2 % (11.9-15.9); WHITE BLOOD COUNT 5.7 K/mm3 (4.0-10.0)
[2016-06-27 06:50] LABS: ALBUMIN 2.9 g/dl (3.4-5.0); ANION GAP 7 (8-16); CALCIUM 7.9 mg/dL (8.5-10.1); CO2 27 mmol/L (21-32); GLUCOSE,RANDOM 104 mg/dL (74-106)
[2016-06-27 06:54] LABS: ALK PHOS 79 U/L (45-117); BILIRUBIN,TOTAL 1.9 mg/dL (0.2-1.0); CREATININE 0.7 mg/dL (0.7-1.3); LDH 427 U/L (87-241); SGOT/AST 33 U/L (15-37); SGPT/ALT 33 U/L (12-78); TOT PROT 5.4 g/dl (6.4-8.2)
[2016-06-27 08:15] LABS: ANISOCYTOSIS 4+; HYPOCHROMIA 1+; MICROCYTOSIS 1+
--- NOTE | 2016-06-27 08:30 | CONSULT ---
Consult Consult Specialty:: Rheumatology - History of Present Illness History of Present Illness: 71 year old male with past medical history of cholecystectomy, prostate ca s/p prostatectomy, GERD, bilateral cataract surgery admitted with hemolytic anemia. HPI the patient noticed "dark urine for the last few weeks. One week ago he developed dyspnea on exertion and otherwise he was asymptomatic. He denies arthralgia, skin rash, oral ulcers, Raynaud's phenomenon, dry eyes, dry mouth, red eyes or fever. He lost 5 lb in the last year with diet. On admission he was found to have a CBC with WBC 1.5, Hgb 4.9, HCT 15 and platelets 201. , TBili 4.0. Reticulocytes 6.7%, ESR >130 and Hepatitis panel negative. SUNITHA direct was positive. The patient was started on Solumedrol 90 mg IV daily and today WBC was 5.7. At the present time the patient is feeling well and denies dyspnea at rest. - History Source History Provided By: Patient, Medical Record Limitations to Obtaining History: No Limitations - Past Medical History Gastrointestinal: Yes: GERD Renal/: Yes: Cancer (prostate CA s/p prostatectomy) - Past Surgical History Past Surgical History: Yes: Cataract Removal - Alcohol/Substance Use Hx Alcohol Use: No - Smoking History Smoking history: Never smoked Home Medications - Allergies Allergies/Adverse Reactions: Allergies Allergy/AdvReac Type Severity Reaction Status Date / Time No Known Allergies Allergy Verified 06/25/16 14:12 - Home Medications Home Medications: Ambulatory Orders Esomeprazole Magnesium [Nexium] 40 mg PO DAILY 02/06/14 Amoxicillin - [Amoxicillin 500mg Capsule -] 0 mg PO BID 06/25/16 Review of Systems - Review of Systems Constitutional: reports: No Symptoms Eyes: reports: No Symptoms HENT: reports: No Symptoms Neck: reports: No Symptoms Cardiovascular: reports: Shortness of Breath Respiratory: reports: SOB on Exertion Gastrointestinal: reports: No Symptoms Musculoskeletal: reports: No Symptoms Integumentary: reports: No Symptoms Endocrine: reports: No Symptoms Hematology/Lymphatic: reports: No Symptoms Physical Exam Vital Signs: Vital Signs Temperature 98.2 F 06/27/16 06:00 Pulse Rate 58 L 06/27/16 06:00 Respiratory Rate 18 06/27/16 06:00 Blood Pressure 110/61 06/27/16 06:00 O2 Sat by Pulse Oximetry (%) 100 06/26/16 22:00 Labs: CBC, BMP 06/27/16 05:10 06/27/16 05:10 Laboratory Tests 06/25/16 06/25/16 06/26/16 14:45 15:40 08:17 ESR Haptoglobin < 10 L Uric Acid 3.4 Total Bilirubin 2.8 H 2.7 H Direct Bilirubin 1.0 H AST 41 H 38 H ALT 33 Alkaline Phosphatase 89 LD Total 547 H Creatine Kinase 54 Urine Color Urine Appearance Urine pH Ur Specific [place] Urine Protein Urine Glucose (UA) Urine Ketones Urine Blood Urine Nitrite Urine Bilirubin Urine Urobilinogen Ur Leukocyte Esterase Rheumatoid Factor 06/26/16 06/26/16 06/26/16 08:17 08:17 21:00 ESR > 130 H Haptoglobin Uric Acid Total Bilirubin Direct Bilirubin AST ALT Alkaline Phosphatase LD Total Creatine Kinase Urine Color Kirsty Urine Appearance Clear Urine pH 5.0 Ur Specific [place] 1.020 Urine Protein Negative Urine Glucose (UA) Negative Urine Ketones Negative Urine Blood Negative Urine Nitrite Negative Urine Bilirubin Negative Urine Urobilinogen 4.0 e.u/dl Ur Leukocyte Esterase Negative Rheumatoid Factor < 10.0 Assessment/Plan Hemolytic anemia and leukopenia in an asymptomatic patient. No clinical changes suggestive of connective tissue disease, however serology is pending. Plan: [place] was requested. I requested anti-DNAds and CH50. I will follow results. Continue same medications
--- NOTE | 2016-06-27 09:04 | PN ---
Progress Note (short form) - Note Progress Note: Subjective Patient seen and examined in ICU. Chart reviewed. Comfortable Denies cp or sob feels tired otherwise okay All consults noted and appreciated Got 1 unit of RBCs yesterday Objective Last Vital Signs Temp Pulse Resp BP Pulse Ox 98.2 F 58 L 18 110/61 100 06/27/16 06:00 06/27/16 06:00 06/27/16 06:00 06/27/16 06:00 06/26/16 22:00 Labs: CBC, BMP 06/27/16 05:10 06/27/16 05:10 Problem List - Problems (1) Hemolytic anemia Code(s): D58.9 - HEREDITARY HEMOLYTIC ANEMIA, UNSPECIFIED Qualifiers: Hemolytic anemia type: acquired, unspecified Qualified Code(s): D59.9 - Acquired hemolytic anemia, unspecified; D59 - Acquired hemolytic anemia (2) Upper respiratory disease Code(s): J39.9 - DISEASE OF UPPER RESPIRATORY TRACT, UNSPECIFIED (3) Pneumonia Code(s): J18.9 - PNEUMONIA, UNSPECIFIED ORGANISM (4) Pleural effusion Code(s): J90 - PLEURAL EFFUSION, NOT ELSEWHERE CLASSIFIED (5) Prostate CA Code(s): C61 - MALIGNANT NEOPLASM OF PROSTATE Physical Exam Constitutional: Yes: No Distress, Calm Cardiovascular: Yes: Regular Rate and Rhythm Respiratory: Yes: CTA Bilaterally Gastrointestinal: Yes: Normal Bowel Sounds, Soft. No: Distention, Tenderness Edema: No ...Motor Strength: WNL Psychiatric: Yes: Alert, Oriented Assessment and Plan Meds reviewed Continue present care Steroids Transfuse PRN Hematology on case Will monitor closely Discussed with ICU resident as well as nursing staff Discussed with Dr. Panchal also Will follow. Critical time 35 min Documentation prepared by Veronica Martin, acting as a medical education coordinator for Yeyo Alicea MD.
[2016-06-27] MEDS ORDERED: WITCH HAZEL 50% (TUCKS) 40 PAD/JAR PAD TP PRN ×2 (09:22→17:09)
[2016-06-27] MEDS ORDERED: PHENYLEPH/MINERAL OIL/PETROLAT 28 GM OINTMENT RC PRN ×2 (09:23→17:09)
[2016-06-27] MEDS ORDERED: methylPREDNISolone NA SUCC 125 MG/2 ML VIAL IVPB SCH (10:00)
[2016-06-27] MEDS: FOLIC ACID 1 MG TABLET (FP) PO SCH (10:15)
[2016-06-27] MEDS: PANTOPRAZOLE SODIUM 100 ML IVPB SCH (10:16)
[2016-06-27] MEDS ORDERED: PT OWN MED DRAWER 7, Y5N ONE (10:32)
[2016-06-27] MEDS: ALLOPURINOL 300 MG TABLET (FP) PO SCH (10:52)
--- NOTE | 2016-06-27 10:58 | PN ---
Progress Note (short form) - Note Progress Note: no complaints now on steroids s/p blood transfusion Vital Signs Period Temp Pulse Resp BP Sys/Engel Pulse Ox Last 24 Hr 98.0 F-98.4 F 51-80 18-20 104-123/53-75 99-100 cor-rrr llungs clear abd soft,nt ext no edema CBC, BMP 06/27/16 05:10 06/27/16 05:10 Laboratory Tests 06/25/16 06/26/16 06/26/16 15:40 08:17 08:17 ESR > 130 H Haptoglobin < 10 L C-Reactive Protein 3.0 H D Monoscreen 06/26/16 10:35 ESR Haptoglobin C-Reactive Protein Monoscreen Negative Microbiology 06/26/16 07:48 Blood - Peripheral Venous Blood Culture - Preliminary NO GROWTH OBTAINED AFTER 24 HOURS, INCUBATION TO CONTINUE FOR 4 DAYS. 06/26/16 07:48 Blood - Peripheral Venous Blood Culture - Preliminary NO GROWTH OBTAINED AFTER 24 HOURS, INCUBATION TO CONTINUE FOR 4 DAYS. 06/26/16 01:20 Urine - Urine Clean Catch Urine Culture - Final NO GROWTH OBTAINED 06/26/16 09:46 Serum Mycoplasma Antibody - Preliminary 06/26/16 10:35 Serum Mycoplasma Antibody - Preliminary 06/26/16 10:00 Nasopharyngeal Swab Respiratory Virus (PCR) - Preliminary 06/26/16 02:36 Nasopharyngeal Swab Influenza Types A,B Antigen (PEPE) - Final 06/26/16 02:36 Nasopharyngeal Swab - Final cxray negative a/p hemolytic anemia continues on steroids f/u serologies
--- NOTE | 2016-06-27 12:04 | PN ---
Teaching Attending Note Name of Resident: Michael Phoenix ATTENDING PHYSICIAN STATEMENT I saw and evaluated the patient. I reviewed the resident's note and discussed the case with the resident. I agree with the resident's findings and plan as documented. SUBJECTIVE: Patient seen and examined in the ICU. Awake and alert. Denies CP or SOB. Some dry cough. Some improvement in hematologic parameters noted. (+) BM but w/o blood. No hematuria. Intake & Output 06/24/16 06/25/16 06/26/16 06/27/16 23:59 23:59 23:59 23:59 Intake Total 1075 650 Output Total 400 2300 250 Balance -400 -1225 400 Weight 190 lb 1.6 oz 189 lb 4.8 oz 188 lb 12.8 oz Last Vital Signs Temp Pulse Resp BP Pulse Ox 98.4 F 60 18 114/54 100 06/27/16 08:00 06/27/16 10:00 06/27/16 10:00 06/27/16 10:00 06/27/16 09:00 Active Medications Allopurinol (Zyloprim -) 300 mg PO DAILY [facility] Last Admin: 06/27/16 10:52 Dose: 300 mg Folic Acid (Folic Acid -) 1 mg PO DAILY [facility] Last Admin: 06/27/16 10:15 Dose: 1 mg Guaifenesin (Robitussin Dm -) 5 ml PO Q6H PRN PRN Reason: COUGH Last Admin: 06/26/16 00:20 Dose: 5 ml Pantoprazole Sodium (Protonix 40mg Ivpb (Pre-Docked)) 100 mls @ 200 mls/hr IVPB DAILY [facility] Last Admin: 06/27/16 10:16 Dose: 200 mls/hr Lactated Ringer's (Lactated Ringers Solution) 1,000 mls @ 50 mls/hr IV ASDIR [facility] Last Admin: 06/27/16 05:50 Dose: 50 mls/hr Methylprednisolone Sodium Succinate (Solu-Medrol -) 45 mg IVPB BID [facility] Last Admin: 06/27/16 10:16 Dose: 45 mg Witch Brenda/Glycerin (Tucks Pads -) 1 pad TP PRN PRN PRN Reason: PAIN Constitutional: Yes: NAD, (+) Pallor Eyes: Yes: WNL, PERRL HENT: Yes: WNL Neck: Yes: WNL Cardiovascular: Yes: S1, S2, Other (sinus on tele) Respiratory: Yes: CTA Bilaterally, On Nasal O2, SOB on Exertion. No: Rhonchi, SOB, Tachypnea, Wheezes Gastrointestinal: Yes: Normal Bowel Sounds, Soft, Abdomen, Obese ...Rectal Exam: No: Guaiac Negative Renal/: No: CVA Tenderness - Left, CVA Tenderness - Right Musculoskeletal: Yes: WNL Extremities: Yes: WNL Edema: Yes Edema: LLE: Trace, RLE: Trace Peripheral Pulses WNL: Yes (+2 bilateral pedal pulses ) Integumentary: Yes: WNL Neurological: Yes: WNL Psychiatric: Yes: WNL Labs: Laboratory Results - last 24 hr 06/25/16 06/25/16 06/25/16 15:12 15:40 15:56 WBC RBC Hgb Hct MCV MCHC RDW Plt Count MPV Neutrophils % Lymphocytes % Monocytes % Eosinophils % Basophils % Hypochromic-Microcytic Anisocytosis Microcytosis Macrocytosis Haptoglobin < 10 L Sodium Potassium Chloride Carbon Dioxide Anion Gap BUN Creatinine Creat Clearance w eGFR Random Glucose Uric Acid Calcium Total Bilirubin AST ALT Alkaline Phosphatase LD Total Total Protein Albumin Urine Color Urine Appearance Urine pH Ur Specific [place] Urine Protein Urine Glucose (UA) Urine Ketones Urine Blood Urine Nitrite Urine Bilirubin Urine Urobilinogen Ur Leukocyte Esterase Hepatitis A Ab Total Hep Bs Antigen Hep Bs Antibody Hep B Core Total Ab Monoscreen Blood Type O POSITIVE Antibody Screen Positive H Prewarmed Antibody Srcn Positive H Crossmatch See Detail See Detail Spec Expiration Date 06/26/16 06/26/16 06/26/16 08:17 10:35 21:00 WBC RBC Hgb Hct MCV MCHC RDW Plt Count MPV Neutrophils % Lymphocytes % Monocytes % Eosinophils % Basophils % Hypochromic-Microcytic Anisocytosis Microcytosis Macrocytosis Haptoglobin Sodium Potassium Chloride Carbon Dioxide Anion Gap BUN Creatinine Creat Clearance w eGFR Random Glucose Uric Acid Calcium Total Bilirubin AST ALT Alkaline Phosphatase LD Total Total Protein Albumin Urine Color Kirsty Urine Appearance Clear Urine pH 5.0 Ur Specific [place] 1.020 Urine Protein Negative Urine Glucose (UA) Negative Urine Ketones Negative Urine Blood Negative Urine Nitrite Negative Urine Bilirubin Negative Urine Urobilinogen 4.0 e.u/dl Ur Leukocyte Esterase Negative Hepatitis A Ab Total Negative Hep Bs Antigen Negative Hep Bs Antibody Non reactive Hep B Core Total Ab Negative Monoscreen Negative Blood Type Antibody Screen Prewarmed Antibody Srcn Crossmatch Spec Expiration Date 06/27/16 06/27/16 05:10 05:10 WBC 5.7 D RBC 2.01 L Hgb 7.0 L D Hct 21.0 L MCV 104.9 H MCHC 33.1 RDW 28.2 H Plt Count 188 MPV 7.7 Neutrophils % 78.2 Lymphocytes % 15.0 D Monocytes % 6.6 D Eosinophils % 0.1 D Basophils % 0.1 Hypochromic-Microcytic 1+ Anisocytosis 4+ Microcytosis 1+ Macrocytosis 1+ Haptoglobin Sodium 142 Potassium 3.9 Chloride 108 H Carbon Dioxide 27 Anion Gap 7 L BUN 21 H D Creatinine 0.7 Creat Clearance w eGFR > 60 Random Glucose 104 D Uric Acid 2.0 L D Calcium 7.9 L Total Bilirubin 1.9 H D AST 33 ALT 33 Alkaline Phosphatase 79 LD Total 427 H Total Protein 5.4 L Albumin 2.9 L Urine Color Urine Appearance Urine pH Ur Specific [place] Urine Protein Urine Glucose (UA) Urine Ketones Urine Blood Urine Nitrite Urine Bilirubin Urine Urobilinogen Ur Leukocyte Esterase Hepatitis A Ab Total Hep Bs Antigen Hep Bs Antibody Hep B Core Total Ab Monoscreen Blood Type Antibody Screen Prewarmed Antibody Srcn Crossmatch Spec Expiration Date Assessment/Plan Pt is a 71yr old man with PMHx of gallbladder ca s/p cholecystectomy (1998), prostate ca s/p prostectomy (2004) and GERD. Now in the ICU for profound hemolytic anemia and leukopenia. Problem List - Problems (1) Hemolytic anemia Code(s): D58.9 - HEREDITARY HEMOLYTIC ANEMIA, UNSPECIFIED Qualifiers: Hemolytic anemia type: acquired, unspecified Qualified Code(s): D59.9 - Acquired hemolytic anemia, unspecified; D59 - Acquired hemolytic anemia (2) Upper respiratory disease Code(s): J39.9 - DISEASE OF UPPER RESPIRATORY TRACT, UNSPECIFIED IMP: Gallbladder CA Cholecystectomy Prostate CA Prostatectomy GERD RLL PNA suspected Pleural Effusion PLAN: Transfusional support per Heme Medrol Allopurinol O2 as needed Check cultures SCDs IVF Monitor CBC Dr Sev[place] CCTime 35"
--- NOTE | 2016-06-27 13:33 | PN ---
Physical Exam: SUBJECTIVE: Patient seen and examined at bedside in ICU. AAO and states he feels "back to normal". Afebrile overnight and received another unit of PRBC yesterday without issue (2 units total this admission). Denies difficulty breathing or chest pain. OBJECTIVE: Vital Signs Period Temp Pulse Resp BP Sys/Engel Pulse Ox Last 24 Hr 98.0 F-98.4 F 51-80 18-22 104-123/53-75 99-100 GENERAL: The patient is awake, alert, and fully oriented, in no acute distress. HEENT: Atraumatic, EOMI, PERRLA, Moist membranes, no lymphadenopathy noted LUNGS: Minimal rales noted at right lung base, Normal breath sounds left lung HEART: Regular rate and rhythm, S1, S2 without murmur, rub or gallop. ABDOMEN: Soft, nontender, nondistended, normoactive bowel sounds EXTREMITIES: 2+ pulses, warm, well-perfused, no edema. NEUROLOGICAL: Cranial nerves II through XII grossly intact. Normal speech, gait not observed. PSYCH: Normal mood, normal affect. SKIN: Warm, dry, normal turgor, no rashes or lesions noted Laboratory Results - last 24 hr 06/26/16 06/26/16 06/27/16 08:17 21:00 05:10 WBC 5.7 D RBC 2.01 L Hgb 7.0 L D Hct 21.0 L MCV 104.9 H MCHC 33.1 RDW 28.2 H Plt Count 188 MPV 7.7 Neutrophils % 78.2 Lymphocytes % 15.0 D Monocytes % 6.6 D Eosinophils % 0.1 D Basophils % 0.1 Hypochromic-Microcytic 1+ Anisocytosis 4+ Microcytosis 1+ Macrocytosis 1+ Sodium Potassium Chloride Carbon Dioxide Anion Gap BUN Creatinine Creat Clearance w eGFR Random Glucose Uric Acid Calcium Total Bilirubin AST ALT Alkaline Phosphatase LD Total Total Protein Albumin Urine Color Kirsty Urine Appearance Clear Urine pH 5.0 Ur Specific [place] 1.020 Urine Protein Negative Urine Glucose (UA) Negative Urine Ketones Negative Urine Blood Negative Urine Nitrite Negative Urine Bilirubin Negative Urine Urobilinogen 4.0 e.u/dl Ur Leukocyte Esterase Negative Hepatitis A Ab Total Negative Hep Bs Antigen Negative Hep Bs Antibody Non reactive Hep B Core Total Ab Negative 06/27/16 05:10 WBC RBC Hgb Hct MCV MCHC RDW Plt Count MPV Neutrophils % Lymphocytes % Monocytes % Eosinophils % Basophils % Hypochromic-Microcytic Anisocytosis Microcytosis Macrocytosis Sodium 142 Potassium 3.9 Chloride 108 H Carbon Dioxide 27 Anion Gap 7 L BUN 21 H D Creatinine 0.7 Creat Clearance w eGFR > 60 Random Glucose 104 D Uric Acid 2.0 L D Calcium 7.9 L Total Bilirubin 1.9 H D AST 33 ALT 33 Alkaline Phosphatase 79 LD Total 427 H Total Protein 5.4 L Albumin 2.9 L Urine Color Urine Appearance Urine pH Ur Specific [place] Urine Protein Urine Glucose (UA) Urine Ketones Urine Blood Urine Nitrite Urine Bilirubin Urine Urobilinogen Ur Leukocyte Esterase Hepatitis A Ab Total Hep Bs Antigen Hep Bs Antibody Hep B Core Total Ab Active Medications Generic Name Dose Route Start Last Admin Trade Name Freq PRN Reason Stop Dose Admin Allopurinol 300 mg 06/25/16 22:00 06/27/16 10:52 Zyloprim - PO 300 mg DAILY TARYN Administration Folic Acid 1 mg 06/26/16 10:00 06/27/16 10:15 Folic Acid - PO 1 mg DAILY TARYN Administration Guaifenesin 5 ml 06/26/16 00:03 06/26/16 00:20 Robitussin Dm - PO 5 ml Q6H PRN Administration COUGH Pantoprazole Sodium 100 mls @ 200 mls/hr 06/26/16 10:00 06/27/16 10:16 Protonix 40mg Ivpb (Pre-Docked) IVPB 200 mls/hr DAILY TARYN Administration Lactated Ringer's 1,000 mls @ 50 mls/hr 06/25/16 23:30 06/27/16 05:50 Lactated Ringers Solution IV 50 mls/hr ASDIR TARYN Administration Methylprednisolone Sodium Succinate 45 mg 06/27/16 10:00 06/27/16 10:16 Solu-Medrol - IVPB 45 mg BID TARYN Administration Witch Brenda/Glycerin 1 pad 06/27/16 09:22 Tucks Pads - TP PRN PRN PAIN ASSESSMENT/PLAN: 71 year old male with a significant past medical history of cholecystectomy, prostate ca s/p prostatectomy, GERD who presented to ED with abnormal labs of Hgb 4.9, WBC 1.5, plt normal, TBili 4.0. Reported URI symptoms for last week. Being treated for acute hemolytic anemia, likely autoimmune etiology. #Acute hemolytic Anemia, likely autoimmune etiology -Rheumatology consult this morning, workup pending (Positive [place] 1:320) -currently on Allopurinol, Solumedrol BID -received 2units PRBC thus far: H/H improved -trend labs -Heme/Onc following #RLL pneumonia -cultures (-) thus far, CXR clear -ID following -incentive spirometer -keep O2 >94% Prophylaxis/FEN -SCD, PPI -Neutropenic diet, IVF LR @50mls/hr Dispo: can be monitored on floors Visit type - Emergency Visit Emergency Visit: Yes ED Registration Date: 06/25/16 Care time: The patient presented to the Emergency Department on the above date and was hospitalized for further evaluation of their emergent condition. - New Patient This patient is new to me today: No - Critical Care Critical Care patient: Yes Total Critical Care Time (in minutes): 45 Critical Care Statement: The care of this patient involved high complexity decision making to prevent further life threatening deterioration of the patient 's condition and/or to evalute & treat vital organ system(s) failure or risk of failure.
[2016-06-27] MEDS ORDERED: LACTATED RINGERS SOLUTION 1,000 ML IV SCH (17:09)
[2016-06-27] MEDS ORDERED: guaiFENesin/D-METHORPHAN HB 10 ML UNIT-DOSE CUPS PO PRN (17:09)
--- NOTE | 2016-06-27 17:12 | PATH ---
Surgical Pathology Report Patient Name: SHALINI WELLS Med. Rec. #: [id number] /Age/Gender: 1945 (Age: 71) / M Account: [id number] Location: [facility] MED/SURG Taken: 06/25/2016 Received: 06/26/2016 Reported: 06/27/2016 Physicians: Umu Mary M.D. 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 Phenotype: There are mixed mature B and T lymphocyte populations. The B-cells (1% of total) are polytypic. The T-cells (36% of total) show no grimm T-cell antigenic deletion. In addition, granulocytes are 53% of total cells. Monocytes are 55 of total cells. Smears from flow sample show no increase in myeloblasts or atypical lymphocytes. Electronically Signed Deandre Heck M.D. Gross Description Received are 2 green top tubes of peripheral blood which are sent to [facility] 06/26/2016 [facility]06/26/2016
[2016-06-27] MEDS: methylPREDNISolone NA SUCC 125 MG/2 ML VIAL IVPB SCH (21:38)
--- NOTE | 2016-06-27 23:42 | PN ---
Progress Note (short form) - Note Progress Note: PAtient seen and examined Had an episode of chest pain/shortness of breath on walking Last Vital Signs Temp Pulse Resp BP Pulse Ox 98.5 F 63 20 110/57 100 06/28/16 01:39 06/28/16 01:39 06/28/16 01:39 06/28/16 01:39 06/27/16 09:00 HEENT: MAURISIO, EOM Intact Oropharynx: No thrush, No mucositis Cor: RSR, No murmurs, No gallops Lungs: Clear to P&A Abd: Soft, Normal bowel sounds, No organomegaly no c/c/edema Abnormal Lab Results 06/25/16 06/26/16 06/26/16 15:40 08:17 09:55 RBC Hgb Hct MCV RDW Haptoglobin < 10 L Chloride Anion Gap BUN Uric Acid Calcium Total Bilirubin LD Total Serum Total Protein 5.9 L Total Protein Albumin IgM 474 H VIJI M-[place] 0.6 H Free [place] LC, Quant 26.44 H EBV IgG Ab >600.0 H EBV Nuclear Antigen 379.0 H 06/27/16 06/27/16 05:10 05:10 RBC 2.01 L Hgb 7.0 L D Hct 21.0 L MCV 104.9 H RDW 28.2 H Haptoglobin Chloride 108 H Anion Gap 7 L BUN 21 H D Uric Acid 2.0 L D Calcium 7.9 L Total Bilirubin 1.9 H D LD Total 427 H Serum Total Protein Total Protein 5.4 L Albumin 2.9 L IgM VIJI M-[place] Free [place] LC, Quant EBV IgG Ab EBV Nuclear Antigen Current Medications Allopurinol (Zyloprim -) 300 mg PO DAILY [facility] Folic Acid (Folic Acid -) 1 mg PO DAILY [facility] Guaifenesin (Robitussin Dm -) 5 ml PO Q6H PRN PRN Reason: COUGH Last Admin: 06/27/16 21:38 Dose: 5 ml Lactated Ringer's (Lactated Ringers Solution) 1,000 mls @ 50 mls/hr IV ASDIR TARYN Last Admin: 06/27/16 21:38 Dose: 50 mls/hr Pantoprazole Sodium (Protonix 40mg Ivpb (Pre-Docked)) 100 mls @ 200 mls/hr IVPB DAILY [facility] Methylprednisolone Sodium Succinate (Solu-Medrol -) 45 mg IVPB BID [facility] Last Admin: 06/27/16 21:38 Dose: 45 mg Witch Brenda/Glycerin (Tucks Pads -) 1 pad TP PRN PRN PRN Reason: PAIN A/P 71 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
[2016-06-28 00:11] LABS: A/G RATIO 1.2 (0.7-1.7); ALBUMIN 3.1 g/dL (2.9-4.4); ALPHA-1-GLOBULIN 0.4 g/dL (0.0-0.4); BETA GLOBULIN 0.8 g/dL (0.7-1.3); GAMMA GLOBULIN 1.3 g/dL (0.4-1.8); GLOBULIN, TOTAL 2.8 g/dL (2.2-3.9); M-SPIKE 0.6 g/dL (Not Observed); TOTAL PROTEIN 5.9 g/dL (6.0-8.5)
[2016-06-28 00:11] LABS: EPSTEIN BARR ANTIBODY IgM <36.0 U/mL (0.0-35.9)
[2016-06-28 07:23] LABS: BASOPHIL 0.1 % (0-2.0); MCH 35.4 pg (25.7-33.7); MCHC 32.9 g/dl (32.0-35.9); MEAN CELL VOLUME 107.6 fl (80-96); MEAN PLT VOLUME 7.5 fl (7.5-11.1); NEUTROPHILS 85.8 % (42.8-82.8); PLATELET COUNT 209 K/MM3 (134-434); RDW 26.8 % (11.9-15.9); WHITE BLOOD COUNT 4.6 K/mm3 (4.0-10.0)
[2016-06-28 07:46] LABS: ALK PHOS 89 U/L (45-117); ANION GAP 8 (8-16); BILIRUBIN,TOTAL 1.7 mg/dL (0.2-1.0); CALCIUM 8.1 mg/dL (8.5-10.1); CO2 27 mmol/L (21-32); CREATININE 0.7 mg/dL (0.7-1.3); GLUCOSE,RANDOM 114 mg/dL (74-106); SGOT/AST 32 U/L (15-37); SGPT/ALT 41 U/L (12-78); TOT PROT 5.8 g/dl (6.4-8.2)
--- NOTE | 2016-06-28 08:34 | PN ---
Progress Note (short form) - Note Progress Note: PULMONARY Denies shortness of breath or chest pain. c/o IV site. No bleeding, reports brown stools. Last Vital Signs Temp Pulse Resp BP Pulse Ox 98.3 F 58 L 20 112/57 100 06/28/16 06:00 06/28/16 06:00 06/28/16 06:00 06/28/16 06:00 06/27/16 09:00 Gen: NAD at rest Heart: RRR Lung: clear to auscultation, no wheezes Abd: soft, nontender Ext: no edema CBC, BMP 06/28/16 06:00 06/28/16 06:00 Active Medications Allopurinol (Zyloprim -) 300 mg PO DAILY [facility] Folic Acid (Folic Acid -) 1 mg PO DAILY [facility] Guaifenesin (Robitussin Dm -) 5 ml PO Q6H PRN PRN Reason: COUGH Last Admin: 06/27/16 21:38 Dose: 5 ml Lactated Ringer's (Lactated Ringers Solution) 1,000 mls @ 50 mls/hr IV ASDIR [facility] Last Admin: 06/27/16 21:38 Dose: 50 mls/hr Pantoprazole Sodium (Protonix 40mg Ivpb (Pre-Docked)) 100 mls @ 200 mls/hr IVPB DAILY [facility] Methylprednisolone Sodium Succinate (Solu-Medrol -) 45 mg IVPB BID [facility] Last Admin: 06/27/16 21:38 Dose: 45 mg Witch Brenda/Glycerin (Tucks Pads -) 1 pad TP PRN PRN PRN Reason: PAIN A/P Acute Hemolytic Anemia s/p PRBC transfusions URI - monitor H/H - transfuse as needed - continue steroids per hematology - will give mucinex for his cough
--- NOTE | 2016-06-28 09:50 | PN ---
Progress Note, Physician Chief Complaint: ID Feels well No complaint - Current Medication List Current Medications: Active Medications Allopurinol (Zyloprim -) 300 mg PO DAILY [facility] Folic Acid (Folic Acid -) 1 mg PO DAILY [facility] Guaifenesin (Mucinex -) 600 mg PO BID [facility] Lactated Ringer's (Lactated Ringers Solution) 1,000 mls @ 50 mls/hr IV ASDIR [facility] Last Admin: 06/27/16 21:38 Dose: 50 mls/hr Pantoprazole Sodium (Protonix 40mg Ivpb (Pre-Docked)) 100 mls @ 200 mls/hr IVPB DAILY [facility] Methylprednisolone Sodium Succinate (Solu-Medrol -) 45 mg IVPB BID [facility] Last Admin: 06/27/16 21:38 Dose: 45 mg Witch Brenda/Glycerin (Tucks Pads -) 1 pad TP PRN PRN PRN Reason: PAIN - Objective Vital Signs: Vital Signs Temperature 98.3 F 06/28/16 06:00 Pulse Rate 58 L 06/28/16 06:00 Respiratory Rate 20 06/28/16 06:00 Blood Pressure 112/57 06/28/16 06:00 O2 Sat by Pulse Oximetry (%) 100 06/27/16 09:00 Constitutional: Yes: Well Nourished, No Distress HENT: Yes: WNL, Atraumatic Neck: Yes: WNL, Supple Cardiovascular: Yes: Regular Rate and Rhythm, S1, S2 Respiratory: Yes: WNL, Regular, CTA Bilaterally Gastrointestinal: Yes: WNL, Normal Bowel Sounds. No: Tenderness Edema: No Labs: CBC, BMP 06/28/16 06:00 06/28/16 06:00 INR, PTT INR 1.31 (0.82-1.09) H 06/28/16 06:00 Fibrinogen 305.0 mg/dL (238-498) 06/26/16 08:30 Problem List - Problems (1) Hemolytic anemia Code(s): D58.9 - HEREDITARY HEMOLYTIC ANEMIA, UNSPECIFIED Qualifiers: Hemolytic anemia type: acquired, unspecified Qualified Code(s): D59.9 - Acquired hemolytic anemia, unspecified; D59 - Acquired hemolytic anemia (2) Upper respiratory disease Code(s): J39.9 - DISEASE OF UPPER RESPIRATORY TRACT, UNSPECIFIED Assessment/Plan Microbiology 02/23/17 10:35 Serum Mycoplasma Antibody - Preliminary Laboratory Tests 06/26/16 06/26/16 06/27/16 08:17 09:55 05:10 WBC 1.6 L RBC Hgb Plt Count BUN Creatinine CMV IgG Ab > 10.00 H CMV IgM Ab < 30.0 EBV IgG Ab >600.0 H EBV IgM Ab <36.0 EBV Nuclear Antigen 379.0 H 06/28/16 06/28/16 06:00 06:00 WBC 4.6 RBC 2.25 L Hgb 8.0 L D Plt Count 209 BUN 20 H Creatinine 0.7 CMV IgG Ab CMV IgM Ab EBV IgG Ab EBV IgM Ab EBV Nuclear Antigen Assessment Auto immune hemolysis ? viral Plan Work up in progress Cassie FIGUEROA
[2016-06-28 10:13] LABS: HEMATOCRIT 14.4 % (37.5-51.0)
--- NOTE | 2016-06-28 10:57 | PN ---
Progress Note (short form) - Note Progress Note: Progress Note: Subjective Patient seen and examined . feels better today more energetic Denies cp or sob All consults noted and appreciated Vital Signs Temp 98.1 F 06/28/16 10:54 Pulse 66 06/28/16 10:54 Resp 17 06/28/16 10:54 BP 120/57 06/28/16 10:54 Pulse Ox 100 06/27/16 09:00 Intake & Output 06/27/16 06/27/16 06/28/16 11:59 23:59 11:59 Intake Total 650 1650 300 Output Total 250 1100 600 Balance 400 550 -300 Weight 188 lb 12.8 oz 187 lb 1 oz Intake: IV 550 1000 300 Lactated Ringers Solution 550 300 1,000 ml @ 50 mls/hr IV ASDIR TARYN Rx#:[id number] Lactated Ringers Solution 1000 1,000 ml @ 50 mls/hr IV ASDIR TARYN Rx#:[id number] IVPB 50 Oral 100 600 Output: Urine 250 1100 600 Void 250 1100 600 Other: Voiding Method Urinal Urinal Urinal Bowel Movement No No Yes Weight Measurement Method Built in Bedscale Standing Scale CBC, BMP 06/28/16 06:00 06/28/16 06:00 Active Medications Allopurinol (Zyloprim -) 300 mg PO DAILY [facility] Folic Acid (Folic Acid -) 1 mg PO DAILY [facility] Guaifenesin (Mucinex -) 600 mg PO BID [facility] Lactated Ringer's (Lactated Ringers Solution) 1,000 mls @ 50 mls/hr IV ASDIR TARYN Last Admin: 06/27/16 21:38 Dose: 50 mls/hr Pantoprazole Sodium (Protonix 40mg Ivpb (Pre-Docked)) 100 mls @ 200 mls/hr IVPB DAILY [facility] Methylprednisolone Sodium Succinate (Solu-Medrol -) 45 mg IVPB BID [facility] Last Admin: 06/27/16 21:38 Dose: 45 mg Witch Brenda/Glycerin (Tucks Pads -) 1 pad TP PRN PRN PRN Reason: PAIN Problem List - Problems (1) Hemolytic anemia Code(s): D58.9 - HEREDITARY HEMOLYTIC ANEMIA, UNSPECIFIED Qualifiers: Hemolytic anemia type: acquired, unspecified Qualified Code(s): D59.9 - Acquired hemolytic anemia, unspecified; D59 - Acquired hemolytic anemia (2) Upper respiratory disease Code(s): J39.9 - DISEASE OF UPPER RESPIRATORY TRACT, UNSPECIFIED (3) Pneumonia Code(s): J18.9 - PNEUMONIA, UNSPECIFIED ORGANISM (4) Pleural effusion Code(s): J90 - PLEURAL EFFUSION, NOT ELSEWHERE CLASSIFIED (5) Prostate CA Code(s): C61 - MALIGNANT NEOPLASM OF PROSTATE Physical Exam Constitutional: Yes: No Distress, Calm/ comfortable Cardiovascular: Yes: Regular Rate and Rhythm Respiratory: Yes: CTA Bilaterally Gastrointestinal: Yes: Normal Bowel Sounds, Soft. No: Distention, Tenderness Edema: No ...Motor Strength: WNL Psychiatric: Yes: Alert, Oriented Assessment and Plan Better Meds reviewed Continue present care Steroids Transfuse PRN Hematology on case daily oob - chair will follow
[2016-06-28] MEDS: PANTOPRAZOLE SODIUM 100 ML IVPB SCH (11:06)
[2016-06-28] MEDS: methylPREDNISolone NA SUCC 125 MG/2 ML VIAL IVPB SCH ×2 (11:07→22:11)
[2016-06-28] MEDS: FOLIC ACID 1 MG TABLET (FP) PO SCH (11:07)
[2016-06-28] MEDS: ALLOPURINOL 300 MG TABLET (FP) PO SCH (11:07)
[2016-06-28] MEDS: guaiFENesin 600 MG TABLET.ER (FP) PO SCH ×2 (11:07→22:11)
--- NOTE | 2016-06-28 16:25 | PN ---
Progress Note (short form) - Note Progress Note: PAtient seen and examined Had an episode of chest pain/shortness of breath on walking Last Vital Signs Temp Pulse Resp BP Pulse Ox 97.4 F L 63 20 112/58 96 06/28/16 13:57 06/28/16 13:57 06/28/16 13:57 06/28/16 13:57 06/28/16 09:00 HEENT: MAURISIO, EOM Intact Oropharynx: No thrush, No mucositis Cor: RSR, No murmurs, No gallops Lungs: Clear to P&A Abd: Soft, Normal bowel sounds, No organomegaly no c/c/edema Abnormal Lab Results 06/25/16 06/26/16 06/26/16 21:25 08:17 09:55 RBC Hgb Hct 14.4 L* MCV RDW Neutrophils % Monocytes % INR BUN Random Glucose Calcium Total Bilirubin Serum Total Protein 5.9 L Total Protein Albumin IgM 474 H VIJI M-[place] 0.6 H Free [place] LC, Quant 26.44 H CMV IgG Ab EBV IgG Ab >600.0 H EBV Nuclear Antigen 379.0 H 06/27/16 06/28/16 06/28/16 05:10 06:00 06:00 RBC 2.25 L Hgb 8.0 L D Hct 24.2 L D MCV 107.6 H RDW 26.8 H Neutrophils % 85.8 H Monocytes % 2.4 L INR 1.31 H BUN Random Glucose Calcium Total Bilirubin Serum Total Protein Total Protein Albumin IgM VIJI M[place] Free [place] LC, Quant CMV IgG Ab > 10.00 H EBV IgG Ab EBV Nuclear Antigen 06/28/16 06:00 RBC Hgb Hct MCV RDW Neutrophils % Monocytes % INR BUN 20 H Random Glucose 114 H Calcium 8.1 L Total Bilirubin 1.7 H Serum Total Protein Total Protein 5.8 L Albumin 3.0 L IgM VIJI [place] Free [place] LC, Quant CMV IgG Ab EBV IgG Ab EBV Nuclear Antigen Current Medications Allopurinol (Zyloprim -) 300 mg PO DAILY [facility] Last Admin: 06/28/16 11:07 Dose: 300 mg Folic Acid (Folic Acid -) 1 mg PO DAILY [facility] Last Admin: 06/28/16 11:07 Dose: 1 mg Guaifenesin (Mucinex -) 600 mg PO BID [facility] Last Admin: 06/28/16 11:07 Dose: 600 mg Lactated Ringer's (Lactated Ringers Solution) 1,000 mls @ 50 mls/hr IV ASDIR [facility] Last Admin: 06/27/16 21:38 Dose: 50 mls/hr Pantoprazole Sodium (Protonix 40mg Ivpb (Pre-Docked)) 100 mls @ 200 mls/hr IVPB DAILY [facility] Last Admin: 06/28/16 11:06 Dose: 200 mls/hr Methylprednisolone Sodium Succinate (Solu-Medrol -) 45 mg IVPB BID [facility] Last Admin: 06/28/16 11:07 Dose: 45 mg Witch Brenda/Glycerin (Tucks Pads -) 1 pad TP PRN PRN PRN Reason: PAIN A/P 71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
[2016-06-29 07:14] LABS: MCH 36.4 pg (25.7-33.7); MCHC 33.8 g/dl (32.0-35.9); MEAN CELL VOLUME 107.7 fl (80-96); MEAN PLT VOLUME 7.6 fl (7.5-11.1); NEUTROPHILS 89.1 % (42.8-82.8); PLATELET COUNT 217 K/MM3 (134-434); WHITE BLOOD COUNT 6.6 K/mm3 (4.0-10.0)
[2016-06-29 07:57] LABS: ALBUMIN 3.2 g/dl (3.4-5.0); ANION GAP 6 (8-16); CALCIUM 8.6 mg/dL (8.5-10.1); CO2 28 mmol/L (21-32); GLUCOSE,RANDOM 129 mg/dL (74-106)
[2016-06-29 08:00] LABS: ALK PHOS 84 U/L (45-117); BILIRUBIN,TOTAL 1.3 mg/dL (0.2-1.0); CREATININE 0.7 mg/dL (0.7-1.3); SGOT/AST 23 U/L (15-37); SGPT/ALT 35 U/L (12-78); TOT PROT 5.9 g/dl (6.4-8.2)
--- NOTE | 2016-06-29 09:58 | PN ---
Progress Note (short form) - Note Progress Note: PULMONARY Denies shortness of breath or chest pain. +cough now with clearing sputum. Last Vital Signs Temp Pulse Resp BP Pulse Ox 98.5 F 58 L 20 112/52 98 06/29/16 06:00 06/29/16 06:00 06/29/16 06:00 06/29/16 06:00 06/28/16 20:50 Gen: NAD at rest Heart: RRR Lung: clear to auscultation, no wheezes Abd: soft, nontender Ext: no edema CBC, BMP 06/29/16 06:00 06/29/16 06:00 Active Medications Allopurinol (Zyloprim -) 300 mg PO DAILY [facility] Last Admin: 06/28/16 11:07 Dose: 300 mg Folic Acid (Folic Acid -) 1 mg PO DAILY [facility] Last Admin: 06/28/16 11:07 Dose: 1 mg Guaifenesin (Mucinex -) 600 mg PO BID [facility] Last Admin: 06/28/16 22:11 Dose: 600 mg Pantoprazole Sodium (Protonix 40mg Ivpb (Pre-Docked)) 100 mls @ 200 mls/hr IVPB DAILY [facility] Last Admin: 06/28/16 11:06 Dose: 200 mls/hr Methylprednisolone Sodium Succinate (Solu-Medrol -) 45 mg IVPB BID [facility] Last Admin: 06/28/16 22:11 Dose: 45 mg Witch Brenda/Glycerin (Tucks Pads -) 1 pad TP PRN PRN PRN Reason: PAIN A/P Acute Hemolytic Anemia s/p PRBC transfusions URI - monitor H/H - transfuse as needed - continue steroids per hematology - mucinex
[2016-06-29] MEDS: methylPREDNISolone NA SUCC 125 MG/2 ML VIAL IVPB SCH ×2 (10:09→22:10)
[2016-06-29] MEDS: PANTOPRAZOLE SODIUM 100 ML IVPB SCH (10:09)
[2016-06-29] MEDS: FOLIC ACID 1 MG TABLET (FP) PO SCH (10:09)
[2016-06-29] MEDS: ALLOPURINOL 300 MG TABLET (FP) PO SCH (10:09)
[2016-06-29] MEDS: guaiFENesin 600 MG TABLET.ER (FP) PO SCH ×2 (10:09→22:10)
--- NOTE | 2016-06-29 13:16 | PN ---
Progress Note (short form) - Note Progress Note: Pt comfortable no complains feels well all f/u noted Vital Signs Temp 98.0 F 06/29/16 10:20 Pulse 63 06/29/16 10:20 Resp 18 06/29/16 10:20 BP 112/53 06/29/16 10:20 Pulse Ox 98 06/28/16 20:50 Intake & Output 06/28/16 06/29/16 06/29/16 23:59 11:59 23:59 Intake Total 1650 100 Output Total 600 Balance 1050 100 Weight 185 lb 8 oz Intake: IV 500 saline lock 500 IVPB 150 100 Oral 1000 Output: Urine 600 Void 600 Other: Voiding Method Urinal Urinal # Unmeasured Voids Void 3 Bowel Movement No Weight Measurement Method Standing Scale Active Medications Allopurinol (Zyloprim -) 300 mg PO DAILY [facility] Last Admin: 06/29/16 10:09 Dose: 300 mg Folic Acid (Folic Acid -) 1 mg PO DAILY [facility] Last Admin: 06/29/16 10:09 Dose: 1 mg Guaifenesin (Mucinex -) 600 mg PO BID [facility] Last Admin: 06/29/16 10:09 Dose: 600 mg Pantoprazole Sodium (Protonix 40mg Ivpb (Pre-Docked)) 100 mls @ 200 mls/hr IVPB DAILY [facility] Last Admin: 06/29/16 10:09 Dose: 200 mls/hr Methylprednisolone Sodium Succinate (Solu-Medrol -) 45 mg IVPB BID [facility] Last Admin: 06/29/16 10:09 Dose: 45 mg Witch Brenda/Glycerin (Tucks Pads -) 1 pad TP PRN PRN PRN Reason: PAIN CBC, BMP 06/29/16 06:00 06/29/16 06:00 Physical Exam Constitutional: Yes: No Distress, Calm/ comfortable Cardiovascular: Yes: Regular Rate and Rhythm Respiratory: Yes: CTA Bilaterally Gastrointestinal: Yes: Normal Bowel Sounds, Soft. No: Distention, Tenderness Edema: No ...Motor Strength: WNL Psychiatric: Yes: Alert, Oriented Assessment and Plan Better Meds reviewed Continue present care Steroids Transfuse PRN Hematology on case bome marrow being planned daily oob - chair will follow
--- NOTE | 2016-06-29 22:10 | PN ---
Progress Note (short form) - Note Progress Note: PAtient seen and examined feels better walking Last Vital Signs Temp Pulse Resp BP Pulse Ox 98.2 F 60 18 120/55 98 06/29/16 17:43 06/29/16 17:43 06/29/16 21:00 06/29/16 17:43 06/29/16 21:00 HEENT: MAURISIO, EOM Intact Oropharynx: No thrush, No mucositis Cor: RSR, No murmurs, No gallops Lungs: Clear to P&A Abd: Soft, Normal bowel sounds, No organomegaly no c/c/edema Abnormal Lab Results 06/25/16 06/25/16 06/27/16 15:12 17:28 05:10 RBC Hgb Hct MCV RDW Neutrophils % Lymphocytes % Monocytes % Anion Gap Random Glucose Total Bilirubin Total Protein Albumin EBV IgG Ab EBV Nuclear Antigen 346.0 H Antibody Screen Positive H Prewarmed Antibody Srcn Positive H Crossmatch See Detail See Detail 06/27/16 06/29/16 06/29/16 05:10 06:00 06:00 RBC 2.26 L Hgb 8.2 L Hct 24.4 L MCV 107.7 H RDW 25.0 H Neutrophils % 89.1 H Lymphocytes % 7.8 L D Monocytes % 3.1 L Anion Gap 6 L Random Glucose 129 H Total Bilirubin 1.3 H D Total Protein 5.9 L Albumin 3.2 L EBV IgG Ab >600.0 H EBV Nuclear Antigen Antibody Screen Prewarmed Antibody Srcn Crossmatch Current Medications Allopurinol (Zyloprim -) 300 mg PO DAILY [facility] Last Admin: 06/29/16 10:09 Dose: 300 mg Folic Acid (Folic Acid -) 1 mg PO DAILY [facility] Last Admin: 06/29/16 10:09 Dose: 1 mg Guaifenesin (Mucinex -) 600 mg PO BID [facility] Last Admin: 06/29/16 10:09 Dose: 600 mg Methylprednisolone Sodium Succinate (Solu-Medrol -) 45 mg IVPB BID [facility] Last Admin: 06/29/16 10:09 Dose: 45 mg Pantoprazole Sodium (Protonix -) 40 mg PO DAILY [facility] Witch Brenda/Glycerin (Tucks Pads -) 1 pad TP PRN PRN PRN Reason: PAIN A/P 71 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
[2016-06-30 08:06] LABS: BASOPHIL 0.1 % (0-2.0); MCH 36.6 pg (25.7-33.7); MCHC 33.4 g/dl (32.0-35.9); MEAN CELL VOLUME 109.7 fl (80-96); MEAN PLT VOLUME 7.9 fl (7.5-11.1); NEUTROPHILS 83.9 % (42.8-82.8); PLATELET COUNT 224 K/MM3 (134-434); RDW 24.3 % (11.9-15.9); WHITE BLOOD COUNT 5.3 K/mm3 (4.0-10.0)
[2016-06-30 08:26] LABS: ALBUMIN 3.2 g/dl (3.4-5.0); ANION GAP 9 (8-16); CALCIUM 8.3 mg/dL (8.5-10.1); CO2 27 mmol/L (21-32); GLUCOSE,RANDOM 103 mg/dL (74-106)
[2016-06-30 08:29] LABS: ALK PHOS 72 U/L (45-117); BILIRUBIN,TOTAL 1.3 mg/dL (0.2-1.0); CREATININE 0.7 mg/dL (0.7-1.3); LDH 345 U/L (87-241); SGOT/AST 22 U/L (15-37); SGPT/ALT 40 U/L (12-78); TOT PROT 5.8 g/dl (6.4-8.2)
--- NOTE | 2016-06-30 08:45 | PN ---
Progress Note (short form) - Note Progress Note: Subjective Patient seen and examined. Comfortable. No complaints offered. Feels well. Son at bedside. Denies chest pain, SOB or abdominal pain. Objective Last Vital Signs Temp Pulse Resp BP Pulse Ox 98.3 F 60 20 104/51 98 06/30/16 05:56 06/30/16 05:56 06/30/16 05:56 06/30/16 05:56 06/29/16 21:00 CBC, BMP 06/30/16 06:45 06/30/16 06:45 Laboratory Results - last 24 hr 06/25/16 06/25/16 06/30/16 15:12 17:28 06:45 WBC 5.3 RBC 2.32 L Hgb 8.5 L Hct 25.4 L MCV 109.7 H MCHC 33.4 RDW 24.3 H Plt Count 224 MPV 7.9 Neutrophils % 83.9 H Lymphocytes % 11.3 D Monocytes % 4.7 Eosinophils % 0.0 Basophils % 0.1 D Sodium Potassium Chloride Carbon Dioxide Anion Gap BUN Creatinine Creat Clearance w eGFR Random Glucose Uric Acid Calcium Total Bilirubin AST ALT Alkaline Phosphatase LD Total Total Protein Albumin Blood Type O POSITIVE Antibody Screen Positive H Prewarmed Antibody Srcn Positive H Crossmatch See Detail See Detail Spec Expiration Date 06/30/16 06:45 WBC RBC Hgb Hct MCV MCHC RDW Plt Count MPV Neutrophils % Lymphocytes % Monocytes % Eosinophils % Basophils % Sodium 140 Potassium 4.1 Chloride 104 Carbon Dioxide 27 Anion Gap 9 BUN 20 H Creatinine 0.7 Creat Clearance w eGFR > 60 Random Glucose 103 D Uric Acid 2.0 L Calcium 8.3 L Total Bilirubin 1.3 H AST 22 ALT 40 Alkaline Phosphatase 72 LD Total 345 H Total Protein 5.8 L Albumin 3.2 L Blood Type Antibody Screen Prewarmed Antibody Srcn Crossmatch Spec Expiration Date Physical Exam Constitutional: Yes: No Distress, Calm/ comfortable Cardiovascular: Yes: Regular Rate and Rhythm Respiratory: Yes: CTA Bilaterally Gastrointestinal: Yes: Normal Bowel Sounds, Soft. No: Distention, Tenderness Edema: No ...Motor Strength: WNL Psychiatric: Yes: Alert, Oriented Assessment and Plan Stable. Continue present care Steroids Transfuse PRN H&H stable Hematology to follow bone marrow being planned daily oob - chair Continue steroids. Ambulate. will follow Documentation prepared by Taya Ibrahim, acting as a medical advisor for Yeyo Alicea MD.
[2016-06-30 10:08] LABS: Hgb A2 2.8 % (0.7-3.1)
--- NOTE | 2016-06-30 10:40 | PN ---
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 today urine is clear dyspnea on exertion resolved overall feels much better today - Current Medication List Current Medications: Active Medications Allopurinol (Zyloprim -) 300 mg PO DAILY [facility] Last Admin: 06/29/16 10:09 Dose: 300 mg Folic Acid (Folic Acid -) 1 mg PO DAILY [facility] Last Admin: 06/29/16 10:09 Dose: 1 mg Guaifenesin (Mucinex -) 600 mg PO BID [facility] Last Admin: 06/29/16 22:10 Dose: 600 mg Methylprednisolone Sodium Succinate (Solu-Medrol -) 45 mg IVPB BID [facility] Last Admin: 06/29/16 22:10 Dose: 45 mg Pantoprazole Sodium (Protonix -) 40 mg PO DAILY [facility] Witch Brenda/Glycerin (Tucks Pads -) 1 pad TP PRN PRN PRN Reason: PAIN Microbiology 06/26/16 10:35 Serum Mycoplasma Antibody - Preliminary 06/26/16 07:48 Blood - Peripheral Venous Blood Culture - Preliminary NO GROWTH OBTAINED AFTER 96 HOURS, INCUBATION TO CONTINUE FOR 1 DAYS. 06/26/16 07:48 Blood - Peripheral Venous Blood Culture - Preliminary NO GROWTH OBTAINED AFTER 96 HOURS, INCUBATION TO CONTINUE FOR 1 DAYS. 06/27/16 14:30 Sputum - Expectorated Gram Stain - Final 06/27/16 14:30 Sputum - Expectorated Sputum Culture - Preliminary NORMAL RESPIRATORY ANYA 06/26/16 01:20 Urine - Urine Clean Catch Urine Culture - Final NO GROWTH OBTAINED 06/26/16 09:46 Serum Mycoplasma Antibody - Preliminary 06/26/16 10:00 Nasopharyngeal Swab Respiratory Virus (PCR) - Preliminary 06/26/16 02:36 Nasopharyngeal Swab Influenza Types A,B Antigen (PEPE) - Final 06/26/16 02:36 Nasopharyngeal Swab - Final - Objective Vital Signs: Vital Signs Temperature 98.3 F 06/30/16 05:56 Pulse Rate 60 06/30/16 05:56 Respiratory Rate 20 06/30/16 05:56 Blood Pressure 104/51 06/30/16 05:56 O2 Sat by Pulse Oximetry (%) 98 06/29/16 21:00 Constitutional: Yes: Well Nourished, No Distress Eyes: Yes: Other (slight conjunctival pallor) HENT: Yes: Atraumatic, Normocephalic Neck: Yes: Supple, Trachea Midline Cardiovascular: Yes: Regular Rate and Rhythm Respiratory: Yes: CTA Bilaterally Gastrointestinal: Yes: Soft Edema: Yes Edema: LLE: Trace Integumentary: Yes: WNL Neurological: Yes: Alert, Oriented ...Motor Strength: WNL Psychiatric: Yes: Alert, Oriented Labs: CBC, BMP 06/30/16 06:45 06/30/16 06:45 INR, PTT INR 1.31 (0.82-1.09) H 06/28/16 06:00 Fibrinogen 305.0 mg/dL (238-498) 06/26/16 08:30 CMP Sodium 140 mmol/L (136-145) 06/30/16 06:45 Potassium 4.1 mmol/L (3.5-5.1) 06/30/16 06:45 Chloride 104 mmol/L (98-107) 06/30/16 06:45 Carbon Dioxide 27 mmol/L (21-32) 06/30/16 06:45 Anion Gap 9 (8-16) 06/30/16 06:45 BUN 20 mg/dL (7-18) H 06/30/16 06:45 Creatinine 0.7 mg/dL (0.7-1.3) 06/30/16 06:45 Creat Clearance w eGFR > 60 (>60) 06/30/16 06:45 Random Glucose 103 mg/dL (74-106) D 06/30/16 06:45 Uric Acid 2.0 mg/dL (2.6-7.2) L 06/30/16 06:45 Calcium 8.3 mg/dL (8.5-10.1) L 06/30/16 06:45 Phosphorus 3.6 mg/dL (2.5-4.9) 06/26/16 08:17 Magnesium 2.1 mg/dL (1.8-2.4) 06/26/16 08:17 Total Bilirubin 1.3 mg/dL (0.2-1.0) H 06/30/16 06:45 Direct Bilirubin Cancelled 06/25/16 15:40 AST 22 U/L (15-37) 06/30/16 06:45 ALT 40 U/L (12-78) 06/30/16 06:45 Alkaline Phosphatase 72 U/L (45-117) 06/30/16 06:45 LD Total 345 U/L (87-241) H 06/30/16 06:45 Creatine Kinase 43 IU/L (39-308) 06/26/16 08:17 Troponin I < 0.02 ng/ml (0.00-0.05) 06/26/16 08:17 C-Reactive Protein 3.0 MG/DL (0.00-0.3) H D 06/26/16 08:17 Serum Total Protein 5.9 g/dL (6.0-8.5) L 06/26/16 08:17 Total Protein 5.8 g/dl (6.4-8.2) L 06/30/16 06:45 Albumin 3.2 g/dl (3.4-5.0) L 06/30/16 06:45 Globulin 2.8 g/dL (2.2-3.9) 06/26/16 08:17 Albumin/Globulin Ratio 1.2 (0.7-1.7) 06/26/16 08:17 Vaedm-0-Rkcfadnuv 0.4 g/dL (0.0-0.4) 06/26/16 08:17 Ciccs-8-Inuzbpgtw 0.4 g/dL (0.4-1.0) 06/26/16 08:17 Beta Globulins 0.8 g/dL (0.7-1.3) 06/26/16 08:17 Gamma Globulins 1.3 g/dL (0.4-1.8) 06/26/16 08:17 Vitamin B12 564 pg/ml (180-914) 06/25/16 21:30 Folate 2217 ng/mL (>498) 06/25/16 21:25 Folate Hemolysate 319.3 ng/mL (Not Estab.) 06/25/16 21:25 Hepatic Panel Total Bilirubin 1.3 mg/dL (0.2-1.0) H 06/30/16 06:45 Direct Bilirubin Cancelled 06/25/16 15:40 AST 22 U/L (15-37) 06/30/16 06:45 ALT 40 U/L (12-78) 06/30/16 06:45 Alkaline Phosphatase 72 U/L (45-117) 06/30/16 06:45 Albumin 3.2 g/dl (3.4-5.0) L 06/30/16 06:45 - ....Imaging Chest X-ray: Report Reviewed, Image Reviewed (from 06/27/16) Problem List - Problems (1) Hemolytic anemia Code(s): D58.9 - HEREDITARY HEMOLYTIC ANEMIA, UNSPECIFIED Qualifiers: Hemolytic anemia type: acquired, unspecified Qualified Code(s): D59.9 - Acquired hemolytic anemia, unspecified; D59 - Acquired hemolytic anemia (2) Prostate CA Code(s): C61 - MALIGNANT NEOPLASM OF PROSTATE (3) Upper respiratory disease Code(s): J39.9 - DISEASE OF UPPER RESPIRATORY TRACT, UNSPECIFIED Assessment/Plan 71M presented to the ER with general malaise and dark colored urine found to have autoimmune hemolytic anemia warm type Hb improved LDH trending down TBili trending down for bone marrow biopsy today CMV EBV serologies noted mycoplasma serology pending patient is hemodynamically Stable at this time continue Steroids per heme/onc Trasuse PRBCs as needed-Hb improving Hematology consult appreciated ambulate sputum culture-normal anya preliminary respiratory virus panel pending mechanical DVT prophylaxis GI prophylaxis-protonix continue allopurinol continue folic acid no indication for antibiotics at this time Will follow thank you for this consult and we appreciate allowing us to participate in the care of this patient
[2016-06-30] MEDS: PANTOPRAZOLE 40 MG TABLET (FP) PO SCH (11:46)
[2016-06-30] MEDS: methylPREDNISolone NA SUCC 125 MG/2 ML VIAL IVPB SCH ×2 (11:47→21:01)
[2016-06-30] MEDS: guaiFENesin 600 MG TABLET.ER (FP) PO SCH ×2 (11:47→21:00)
[2016-06-30] MEDS: ALLOPURINOL 300 MG TABLET (FP) PO SCH (11:47)
[2016-06-30] MEDS: FOLIC ACID 1 MG TABLET (FP) PO SCH (11:47)
--- NOTE | 2016-06-30 14:25 | PN ---
Teaching Attending Note Name of Resident: Reagan Szymanski ATTENDING PHYSICIAN STATEMENT I saw and evaluated the patient. I reviewed the resident's note and discussed the case with the resident. I agree with the resident's findings and plan as documented. SUBJECTIVE:Remains afebrile OBJECTIVE: ASSESSMENT AND PLAN: Laboratory Tests 06/26/16 06/26/16 06/26/16 09:55 10:35 10:35 WBC Hgb Hct Plt Count Cold Agglutinins Negative CMV IgG Ab CMV IgM Ab EBV IgG Ab >600.0 H EBV IgM Ab <36.0 Monoscreen Negative 06/27/16 06/30/16 05:10 06:45 WBC 5.3 Hgb 8.5 L Hct 25.4 L Plt Count 224 Cold Agglutinins CMV IgG Ab > 10.00 H CMV IgM Ab < 30.0 EBV IgG Ab EBV IgM Ab Monoscreen Assessment AHA Plan Kindly recall as needed Cassie FIGUEROA Problem List - Problems (1) Hemolytic anemia Code(s): D58.9 - HEREDITARY HEMOLYTIC ANEMIA, UNSPECIFIED Qualifiers: Hemolytic anemia type: acquired, unspecified Qualified Code(s): D59.9 - Acquired hemolytic anemia, unspecified; D59 - Acquired hemolytic anemia (2) Upper respiratory disease Code(s): J39.9 - DISEASE OF UPPER RESPIRATORY TRACT, UNSPECIFIED
[2016-06-30] MEDS ORDERED: LIDOCAINE HCL 1%, 10 MG/ML (20ML VIAL) ONE (16:33)
--- NOTE | 2016-06-30 19:01 | PN ---
Progress Note (short form) - Note Progress Note: PAtient seen and examined feels better walking Last Vital Signs Temp Pulse Resp BP Pulse Ox 97.9 F 64 20 122/72 97 06/30/16 14:20 06/30/16 14:20 06/30/16 14:20 06/30/16 14:20 06/30/16 09:00 HEENT: MAURISIO, EOM Intact Oropharynx: No thrush, No mucositis Cor: RSR, No murmurs, No gallops Lungs: Clear to P&A Abd: Soft, Normal bowel sounds, No organomegaly no c/c/edema Abnormal Lab Results 06/25/16 06/30/16 06/30/16 15:12 06:45 06:45 RBC 2.32 L Hgb 8.5 L Hct 25.4 L MCV 109.7 H RDW 24.3 H Neutrophils % 83.9 H BUN 20 H Uric Acid 2.0 L Calcium 8.3 L Total Bilirubin 1.3 H LD Total 345 H Total Protein 5.8 L Albumin 3.2 L Crossmatch See Detail Current Medications Folic Acid (Folic Acid -) 1 mg PO DAILY [facility] Last Admin: 06/30/16 11:47 Dose: 1 mg Guaifenesin (Mucinex -) 600 mg PO BID [facility] Last Admin: 06/30/16 11:47 Dose: 600 mg Methylprednisolone Sodium Succinate (Solu-Medrol -) 45 mg IVPB BID [facility] Last Admin: 06/30/16 11:47 Dose: 45 mg Pantoprazole Sodium (Protonix -) 40 mg PO DAILY [facility] Last Admin: 06/30/16 11:46 Dose: 40 mg Witch Brenda/Glycerin (Tucks Pads -) 1 pad TP PRN PRN PRN Reason: PAIN A/P 71 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
--- NOTE | 2016-06-30 19:01 | PROC ---
Bone Marrow Aspiration/Biopsy - Consent Risks and Benefits Explained: Yes Consent on Chart: Yes - Procedure Location: Left Iliac Crest Anesthesia: 1% Lidocaine Sterile Technique: Yes Specimen: Obtained Position: Other (right lateral) Patient tolerated procedure: Well with minimal pain Sterile Dressing Applied: Yes
[2016-07-01 07:48] LABS: BASOPHIL 0.1 % (0-2.0); MCH 36.2 pg (25.7-33.7); MCHC 33.5 g/dl (32.0-35.9); MEAN PLT VOLUME 7.6 fl (7.5-11.1); NEUTROPHILS 82.7 % (42.8-82.8); PLATELET COUNT 238 K/MM3 (134-434); RDW 22.2 % (11.9-15.9); WHITE BLOOD COUNT 4.9 K/mm3 (4.0-10.0)
[2016-07-01 09:00] LABS: ALBUMIN 3.1 g/dl (3.4-5.0); ALK PHOS 73 U/L (45-117); ANION GAP 8 (8-16); BILIRUBIN,TOTAL 1.3 mg/dL (0.2-1.0); CALCIUM 8.3 mg/dL (8.5-10.1); CO2 28 mmol/L (21-32); CREATININE 0.6 mg/dL (0.7-1.3); GLUCOSE,RANDOM 102 mg/dL (74-106); SGOT/AST 17 U/L (15-37); SGPT/ALT 39 U/L (12-78); TOT PROT 5.8 g/dl (6.4-8.2)
[2016-07-01] MEDS: FOLIC ACID 1 MG TABLET (FP) PO SCH (10:01)
[2016-07-01] MEDS: PANTOPRAZOLE 40 MG TABLET (FP) PO SCH (10:02)
[2016-07-01] MEDS: methylPREDNISolone NA SUCC 125 MG/2 ML VIAL IVPB SCH ×2 (10:02→21:04)
[2016-07-01] MEDS: guaiFENesin 600 MG TABLET.ER (FP) PO SCH ×2 (10:02→21:03)
--- NOTE | 2016-07-01 12:18 | PN ---
Progress Note, Physician Chief Complaint: Events noted s/p bm biopsy No distress he is ambulating across he hallway without any difficulty no complaints - Current Medication List Current Medications: Active Medications Folic Acid (Folic Acid -) 1 mg PO DAILY [facility] Last Admin: 07/01/16 10:01 Dose: 1 mg Guaifenesin (Mucinex -) 600 mg PO BID [facility] Last Admin: 07/01/16 10:02 Dose: 600 mg Methylprednisolone Sodium Succinate (Solu-Medrol -) 45 mg IVPB BID [facility] Last Admin: 07/01/16 10:02 Dose: 45 mg Pantoprazole Sodium (Protonix -) 40 mg PO DAILY [facility] Last Admin: 07/01/16 10:02 Dose: 40 mg Witch Brenda/Glycerin (Tucks Pads -) 1 pad TP PRN PRN PRN Reason: PAIN - Objective Vital Signs: Vital Signs Temperature 97.6 F 07/01/16 09:32 Pulse Rate 60 07/01/16 09:32 Respiratory Rate 18 07/01/16 09:32 Blood Pressure 105/45 07/01/16 09:32 O2 Sat by Pulse Oximetry (%) 96 06/30/16 21:00 Constitutional: Yes: No Distress Cardiovascular: Yes: Regular Rate and Rhythm Respiratory: Yes: CTA Bilaterally Gastrointestinal: Yes: Normal Bowel Sounds, Soft. No: Abdomen, Obese, Distention, Tenderness Edema: No Labs: CBC, BMP 07/01/16 06:00 07/01/16 06:00 INR, PTT INR 1.31 (0.82-1.09) H 06/28/16 06:00 Fibrinogen 305.0 mg/dL (238-498) 06/26/16 08:30 Problem List - Problems (1) Hemolytic anemia Code(s): D58.9 - HEREDITARY HEMOLYTIC ANEMIA, UNSPECIFIED Qualifiers: Hemolytic anemia type: acquired, unspecified Qualified Code(s): D59.9 - Acquired hemolytic anemia, unspecified; D59 - Acquired hemolytic anemia (2) Upper respiratory disease Code(s): J39.9 - DISEASE OF UPPER RESPIRATORY TRACT, UNSPECIFIED (3) Pneumonia Code(s): J18.9 - PNEUMONIA, UNSPECIFIED ORGANISM (4) Pleural effusion Code(s): J90 - PLEURAL EFFUSION, NOT ELSEWHERE CLASSIFIED (5) Prostate CA Code(s): C61 - MALIGNANT NEOPLASM OF PROSTATE Assessment/Plan PLAN Hb better s/p bm biopsy spoke with Dr Sanz , continue with solumedrol for now. Will change to PO tomorrow if CBC is ok OOB daily continue with current meds DVT prophylaxis-- SCD
[2016-07-01] MEDS ORDERED: BENZOCAINE/MENTH/CETYLPYRD CL 1 EACH LOZENGE MM PRN (15:18)
--- NOTE | 2016-07-01 16:25 | PN ---
Progress Note (short form) - Note Progress Note: Patient seen and examined No untoward effect of bne marrow, Site clean and dry- dressing changed Result pending ROS- no chest pains, SOB, dyspnea, GI problems of nausea, emesis, diarhea, constipation, dysuria, hematuria, Headaches, diplopia, dysphagia, LE pains or swelling Last Vital Signs Temp Pulse Resp BP Pulse Ox 98.0 F 61 18 131/70 96 07/01/16 14:29 07/01/16 14:29 07/01/16 14:29 07/01/16 14:29 06/30/16 21:00 HEENT: MAURISIO, EOM Intact Oropharynx: No thrush, No mucositis Cor: RSR, No murmurs, No gallops Lungs: Clear to P&A Abd: Soft, Normal bowel sounds, No organomegaly Ext:No significant edema Skin: No rashes, Integument intact CBC, BMP 07/01/16 06:00 07/01/16 06:00 Current Medications Generic Name Dose Route Start Last Admin Trade Name Freq PRN Reason Stop Dose Admin Benzocaine/Menthol 1 each 07/01/16 15:18 Cepacol Lozenge - MM Q6H PRN SORE THROAT Folic Acid 1 mg 06/28/16 10:00 07/01/16 10:01 Folic Acid - PO 1 mg DAILY [facility] Administration Guaifenesin 600 mg 06/28/16 10:00 07/01/16 10:02 Mucinex - PO 600 mg BID [facility] Administration Methylprednisolone Sodium Succinate 45 mg 06/27/16 22:00 07/01/16 10:02 Solu-Medrol - IVPB 45 mg BID [facility] Administration Pantoprazole Sodium 40 mg 06/30/16 10:00 07/01/16 10:02 Protonix - PO 40 mg DAILY [facility] Administration Witch Brenda/Glycerin 1 pad 06/27/16 17:09 Tucks Pads - TP PRN PRN PAIN Impression: Hemolytic Anemia S/P bone marrow biopsy Stable Hct on steroids Plan: taper steroids /change to p.o.
[2016-07-02] MEDS: PANTOPRAZOLE 40 MG TABLET (FP) PO SCH ×2 (06:51→09:55)
[2016-07-02 07:30] LABS: MCH 35.7 pg (25.7-33.7); MCHC 32.8 g/dl (32.0-35.9); MEAN CELL VOLUME 108.8 fl (80-96); MEAN PLT VOLUME 7.6 fl (7.5-11.1); NEUTROPHILS 83.1 % (42.8-82.8); PLATELET COUNT 238 K/MM3 (134-434); RDW 20.8 % (11.9-15.9); WHITE BLOOD COUNT 4.9 K/mm3 (4.0-10.0)
[2016-07-02 07:51] LABS: ALBUMIN 3.1 g/dl (3.4-5.0); ANION GAP 7 (8-16); CALCIUM 8.3 mg/dL (8.5-10.1); CO2 28 mmol/L (21-32); CREATININE 0.5 mg/dL (0.7-1.3); GLUCOSE,RANDOM 110 mg/dL (74-106); LDH 269 U/L (87-241); SGOT/AST 14 U/L (15-37); SGPT/ALT 36 U/L (12-78)
[2016-07-02 07:53] LABS: ALK PHOS 71 U/L (45-117); TOT PROT 5.6 g/dl (6.4-8.2)
[2016-07-02 09:09] LABS: ANISOCYTOSIS 4+; MICROCYTOSIS 1+; TEAR DROP CELLS FEW
[2016-07-02] MEDS ORDERED: PT OWN MED DRAWER 7, Y5N ONE (09:32)
[2016-07-02] MEDS: predniSONE 20 MG TABLET (UD) PO SCH (09:54)
[2016-07-02] MEDS: FOLIC ACID 1 MG TABLET (FP) PO SCH (09:55)
[2016-07-02] MEDS: guaiFENesin 600 MG TABLET.ER (FP) PO SCH ×2 (09:55→21:18)
--- NOTE | 2016-07-02 10:28 | PN ---
Progress Note, Physician Chief Complaint: s/p bm biopsy No distress he is ambulating across he hallway without any difficulty no complaints - Current Medication List Current Medications: Active Medications Benzocaine/Menthol (Cepacol Lozenge -) 1 each MM Q6H PRN PRN Reason: SORE THROAT Last Admin: 07/01/16 17:21 Dose: 1 each Folic Acid (Folic Acid -) 1 mg PO DAILY [facility] Last Admin: 07/02/16 09:55 Dose: 1 mg Guaifenesin (Mucinex -) 600 mg PO BID [facility] Last Admin: 07/02/16 09:55 Dose: 600 mg Pantoprazole Sodium (Protonix -) 40 mg PO DAILY [facility] Last Admin: 07/02/16 09:55 Dose: Not Given Prednisone (Deltasone -) 80 mg PO DAILY [facility] Last Admin: 07/02/16 09:54 Dose: 80 mg Witch Brenda/Glycerin (Tucks Pads -) 1 pad TP PRN PRN PRN Reason: PAIN - Objective Vital Signs: Vital Signs Temperature 97.8 F 07/02/16 10:00 Pulse Rate 55 L 07/02/16 10:00 Respiratory Rate 18 07/02/16 10:00 Blood Pressure 107/54 07/02/16 10:00 O2 Sat by Pulse Oximetry (%) 98 07/01/16 21:00 Constitutional: Yes: No Distress Cardiovascular: Yes: Regular Rate and Rhythm Respiratory: Yes: CTA Bilaterally Gastrointestinal: Yes: Normal Bowel Sounds, Soft. No: Distention, Tenderness Edema: No Psychiatric: Yes: Alert Labs: CBC, BMP 07/02/16 06:10 07/02/16 06:10 INR, PTT INR 1.31 (0.82-1.09) H 06/28/16 06:00 Fibrinogen 305.0 mg/dL (238-498) 06/26/16 08:30 Problem List - Problems (1) Hemolytic anemia Code(s): D58.9 - HEREDITARY HEMOLYTIC ANEMIA, UNSPECIFIED Qualifiers: Hemolytic anemia type: acquired, unspecified Qualified Code(s): D59.9 - Acquired hemolytic anemia, unspecified; D59 - Acquired hemolytic anemia (2) Upper respiratory disease Code(s): J39.9 - DISEASE OF UPPER RESPIRATORY TRACT, UNSPECIFIED (3) Pneumonia Code(s): J18.9 - PNEUMONIA, UNSPECIFIED ORGANISM (4) Pleural effusion Code(s): J90 - PLEURAL EFFUSION, NOT ELSEWHERE CLASSIFIED (5) Prostate CA Code(s): C61 - MALIGNANT NEOPLASM OF PROSTATE Assessment/Plan PLAN Hb better-- 9.2 s/p bm biopsy spoke with Dr Sanz , on PO Prednisone OOB daily continue with current meds dc for tomorrow-- spoke with counter caser DVT prophylaxis-- SCD
--- NOTE | 2016-07-02 17:06 | PN ---
Progress Note (short form) - Note Progress Note: PAtient seen and examined feels better walking Last Vital Signs Temp Pulse Resp BP Pulse Ox 98.5 F 58 L 18 119/65 98 07/02/16 14:06 07/02/16 14:06 07/02/16 14:06 07/02/16 14:06 07/01/16 21:00 HEENT: MAURISIO, EOM Intact Oropharynx: No thrush, No mucositis Cor: RSR, No murmurs, No gallops Lungs: Clear to P&A Abd: Soft, Normal bowel sounds, No organomegaly no c/c/edema Abnormal Lab Results 07/02/16 07/02/16 06:10 06:10 RBC 2.58 L Hgb 9.2 L Hct 28.1 L MCV 108.8 H RDW 20.8 H Neutrophils % 83.1 H Retic Count 4.22 H D Anion Gap 7 L BUN 24 H Creatinine 0.5 L Random Glucose 110 H Calcium 8.3 L AST 14 L LD Total 269 H D Total Protein 5.6 L Albumin 3.1 L Current Medications Benzocaine/Menthol (Cepacol Lozenge -) 1 each MM Q6H PRN PRN Reason: SORE THROAT Last Admin: 07/01/16 17:21 Dose: 1 each Folic Acid (Folic Acid -) 1 mg PO DAILY [facility] Last Admin: 07/02/16 09:55 Dose: 1 mg Guaifenesin (Mucinex -) 600 mg PO BID [facility] Last Admin: 07/02/16 09:55 Dose: 600 mg Pantoprazole Sodium (Protonix -) 40 mg PO DAILY [facility] Last Admin: 07/02/16 09:55 Dose: Not Given Prednisone (Deltasone -) 80 mg PO DAILY [facility] Last Admin: 07/02/16 09:54 Dose: 80 mg Witch Brenda/Glycerin (Tucks Pads -) 1 pad TP PRN PRN PRN Reason: PAIN A/P 71 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
[2016-07-03 07:11] LABS: EOSINOPHIL 0.3 % (0-4.5); MCH 35.9 pg (25.7-33.7); MCHC 33.4 g/dl (32.0-35.9); MEAN CELL VOLUME 107.6 fl (80-96); MEAN PLT VOLUME 7.5 fl (7.5-11.1); NEUTROPHILS 72.1 % (42.8-82.8); PLATELET COUNT 247 K/MM3 (134-434); RDW 19.9 % (11.9-15.9); WHITE BLOOD COUNT 5.4 K/mm3 (4.0-10.0)
[2016-07-03 07:40] LABS: ALBUMIN 3.1 g/dl (3.4-5.0); ANION GAP 7 (8-16); BILIRUBIN,TOTAL 1.1 mg/dL (0.2-1.0); CALCIUM 8.2 mg/dL (8.5-10.1); CO2 29 mmol/L (21-32); CREATININE 0.6 mg/dL (0.7-1.3); GLUCOSE,RANDOM 78 mg/dL (74-106); SGOT/AST 15 U/L (15-37); SGPT/ALT 39 U/L (12-78); TOT PROT 5.7 g/dl (6.4-8.2)
[2016-07-03 07:41] LABS: ALK PHOS 67 U/L (45-117)
[2016-07-03 08:03] VITALS: BP 104/59; PULSE 58; TEMP 97.8
[2016-07-03] MEDS: guaiFENesin 600 MG TABLET.ER (FP) PO SCH (09:29)
[2016-07-03] MEDS: PANTOPRAZOLE 40 MG TABLET (FP) PO SCH (09:29)
[2016-07-03] MEDS: predniSONE 20 MG TABLET (UD) PO SCH (09:29)
[2016-07-03] MEDS: FOLIC ACID 1 MG TABLET (FP) PO SCH (09:29)
--- NOTE | 2016-07-03 10:36 | DS ---
Physical Examination Vital Signs: Vital Signs Temperature 97.8 F 07/03/16 08:02 Pulse Rate 58 L 07/03/16 08:02 Respiratory Rate 18 07/03/16 08:02 Blood Pressure 104/59 07/03/16 08:02 O2 Sat by Pulse Oximetry (%) 100 07/03/16 08:54 Constitutional: Yes: No Distress, Calm Cardiovascular: Yes: Regular Rate and Rhythm Respiratory: Yes: CTA Bilaterally Gastrointestinal: Yes: Normal Bowel Sounds, Soft. No: Distention, Tenderness Edema: No Labs: CBC, BMP 07/03/16 06:00 07/03/16 06:00 Discharge Summary Reason For Visit: HEMOLYTIC ANEMIA Current Active Problems Hemolytic anemia (Acute) Pleural effusion (Acute) Pneumonia (Acute) Prostate CA (Acute) Upper respiratory disease (Acute) Hospital Course: patient admitted for autoimmune hemolytic anemia was seen by cps team lead Patient was initially admitted in the ICU and received 2 units of blood transfusion Started on IV Solu-Medrol and hemoglobin and blood counts started getting better Tapered down to prednisone 60 mg daily Bone marrow aspiration done to rule out lymphoproliferative disorder hemoglobin today is 9.6 Patient is ambulatory Stable for discharge, he will follow with the cps team lead in one week, appointment scheduled and he will also need VNS for steroid management at home I spoke to his PMD today Condition: Improved - Instructions Referrals: Umu Mary MD [Staff Physician] - Bernardo Goldman MD [Primary Care Provider] - Disposition: HOME - Home Medications Comprehensive Discharge Medication List: Ambulatory Orders Esomeprazole Magnesium [Nexium] 40 mg PO DAILY 02/06/14 Amoxicillin - [Amoxicillin 500mg Capsule -] 0 mg PO BID 06/25/16 Folic Acid - 1 mg PO DAILY #30 tablet 07/02/16 Atovaquone [Mepron Oral Solution -] 1,500 mg PO DAILY #210 ml 07/03/16 Prednisone 60 mg PO DAILY 14 Days 07/03/16
--- NOTE | 2016-07-03 14:29 | PN ---
Progress Note (short form) - Note Progress Note: PAtient seen and examined asymptomatic Last Vital Signs Temp Pulse Resp BP Pulse Ox 97.8 F 58 L 18 104/59 100 07/03/16 08:02 07/03/16 08:02 07/03/16 08:02 07/03/16 08:02 07/03/16 08:54 HEENT: MAURISIO, EOM Intact Oropharynx: No thrush, No mucositis Cor: RSR, No murmurs, No gallops Lungs: Clear to P&A Abd: Soft, Normal bowel sounds, No organomegaly no c/c/edema Abnormal Lab Results 07/03/16 07/03/16 06:00 06:00 RBC 2.68 L Hgb 9.6 L Hct 28.8 L MCV 107.6 H RDW 19.9 H Anion Gap 7 L BUN 22 H Creatinine 0.6 L Calcium 8.2 L Total Bilirubin 1.1 H Total Protein 5.7 L Albumin 3.1 L Meds reviewed A/P 71 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 discussed with PMD/nursing staff
--- NOTE | 2016-07-07 13:30 | PATH ---
Surgical Pathology Report Patient Name: SHALNII WELLS Med. Rec. #: [id number] /Age/Gender: 1945 (Age: 71) / M Account: [id number] Location: [facility] MED/SURG Taken: 06/30/2016 Received: 07/01/2016 Reported: 07/07/2016 Physicians: Umu Mary M.D. Specimen(s) Received A: BONE MARROW BIOPSY B: BONE MARROW CLOT C: BONE MARROW ASPIRATION SMEARS 10 SLIDES D: BONE MARROW BLOOD 2 LAVENDER 2 GREEN Clinical History Autoimmune hemolytic anemia Rule out lymphoproliferative disorder Final Diagnosis A, B,C, D. BONE MARROW CORE BIOPSY, CLOT SECTION AND ASPIRATE SMEAR: NORMOCELLULAR BONE MARROW WITH ADEQUATELY MATURING TRILINEAGE HEMATOPOIESIS WITH MILD ERYTHROID HYPERPLASIA (SEE COMMENT) NO EVIDENCE OF INVOLVEMENT BY LYMPHOPROLIFERATIVE PROCESS OR PLASMA CELL NEOPLASM. (SEE COMMENT) Comment: This case was seen in consultation with hematopathology service at [place], [place] [id number], Dr. Laila Earl). The diagnosis above reflects the consultation opinion. The marrow is 40% cellular with maturing trilineage hematopoiesis. The M:E ratio is decreased due to erythroid hyperplasia, CD34+ myeloblasts are not increased. The aspirate smears are cellular and spicular. Myeloid precursors showed complete maturation to segmented neutrophils with focal left shift without dysplasia. Myeloblasts are not increased. Erythroid precursors were mildly increased with mild NC asynchrony and focal dyspoiesis. Megakaryocytes were unremarkable and polymorphous. Lymphoid and plasma cells were not increased. No significant lymphoid or plasma cells infiltrates are present. No ringed sideroblasts are seen. The bony trabeculae are unremarkable. The clot section reflects the findings of the core biopsy; rare small aggregate of small lymphocytes, probably reactive, is seen. Immunostains performed showed the following: CD20 and PAX-5 highlight B-cells; CD3 highlights T-cells; CD138 and MUM-1 are positive in plasma cells (5%); CD34 highlights immature cells and CD71 highlights erythroid precursors. 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 Flow cytometry, performed on a concurrent bone marrow aspirate ([id number]) did not detect clonal B-cell populations. Mild polytypic plasmacytosis was noted. Phenotype: There is a mixed population of maturing myeloid cells, B cells and T cells. No abnormal myeloid maturation is seen. There is no increase in CD34+ blasts and they comprise less than 0.5% of the total cells. Myeloid cells are 91% and monocytes are 2% of total cells. The B-cells (1% of total) appear polytypic and the T-cells (3.5% of total) show no grimm T-cell antigenic deletion. The plasma cells (1% of total events) appear polytypic with mild [place] excess. Electronically Signed Deandre Heck M.D. Gross Description A. Received in formalin, labeled with the patient's name and indicated on the requisition to be a bone marrow biopsy, is a 0.4 cm in length x 0.2 cm diameter dowd, cylindrical portion of bone with attached blood clot. The specimen is submitted in toto in one cassette, following decalcification. B. Received in formalin, labeled with the patient's name and indicated on the requisition to be a bone marrow clot, is a 1.5 cm in diameter x 0.6 cm in length red-brown, cylindrical blood clot. The specimen is bisected and entirely submitted in one cassette. C. Received are 10 bone marrow aspiration smear slides. D. Received are 2 green top tubes and 2 lavender top tubes of bone marrow blood. 07/01/201607/01/2016
== END 2016-07-03 11:08 | disposition home or self-care (01) | DRG 808 ==
LOC: JER 14:08 → JERBED 17:42 → JICU 22:40 → J7W 06-27 17:05
PROVIDERS: ADMIT Internal Medicine; ATTEND Internal Medicine
PROC: 07DR3ZX Extraction of Iliac Bone Marrow, Percutaneous Approach, Diagnostic (ICD-10-PCS; principal; 2016-06-26)
PROC: 30233N1 Transfusion of Nonautologous Red Blood Cells into Peripheral Vein, Percutaneous Approach (ICD-10-PCS; 2016-06-30)
DX: D59.1 Other autoimmune hemolytic anemias (principal); J18.9 Pneumonia, unspecified organism; J90 Pleural effusion, not elsewhere classified; K21.9 Gastro-esophageal reflux disease without esophagitis; M54.5 Low back pain; D72.818 Other decreased white blood cell count; J39.9 Disease of upper respiratory tract, unspecified; Z85.46 Personal history of malignant neoplasm of prostate; Z85.89 Personal history of malignant neoplasm of other organs and systems
CPT/HCPCS: 36415; 36430; 71010-TC; 71020-TC; 71250-TC; 76700-TC; 80053; 81003; 82248; 82550; 82607; 82747; 82784; 83010; 83021; 83615; 83735; 83883; 84100; 84155; 84165; 84484; 84550; 85014; 85025; 85044; 85384; 85610; 85651; 85660; 85730; 86038; 86140; 86157; 86162; 86225; 86308; 86334; 86431; 86644; 86645; 86664; 86665; 86704; 86706; 86708; 86738; 86870; 86880; 86900; 86901; 86902; 86922; 87040; 87070; 87086; 87205; 87252; 87254; 87340; 87633; 87804; 88300-TC; 88305-TC; 88311-TC; 88313-TC; 93005; 93010; 97116-GP; 97161-GP; 99285-25; P9038; P9058

== ENCOUNTER 2018-06-18 07:11 | Day surgery (SDC) | payer OTHER, BC ==
[2018-06-18 09:22] LABS: BASO % 0.1 % (0-2.0); EOS % 0.3 % (0-4.5); HEMATOCRIT 26.5 % (35.4-49); HEMOGLOBIN 8.6 GM/dL (11.7-16.9); LYMPH % 23.8 % (8-40); MCHC 32.5 g/dl (32.0-35.9); MEAN PLT VOLUME 7.5 fl (7.5-11.1); MONO % 6.7 % (3.8-10.2); NEUT % 69.1 % (42.8-82.8); PLATELET COUNT 194 K/MM3 (134-434); RBC 2.11 M/mm3 (4.00-5.60); WHITE BLOOD COUNT 4.9 K/mm3 (4.0-10.0)
[2018-06-18 09:26] LABS: MCH 40.9 pg (25.7-33.7)
[2018-06-18 09:50] LABS: ALBUMIN 3.7 g/dl (3.4-5.0); ALK PHOS 62 U/L (45-117); ANION GAP 6 MMOL/L (8-16); BLOOD UREA NITROGEN 24 mg/dL (7-18); CALCIUM 8.7 mg/dL (8.5-10.1); CHLORIDE 105 mmol/L (98-107); CO2 28 mmol/L (21-32); CREATININE 0.8 mg/dL (0.55-1.3); GLUCOSE,RANDOM 77 mg/dL (74-106); POTASSIUM 3.4 mmol/L (3.5-5.1); SGOT/AST 18 U/L (15-37); SGPT/ALT 24 U/L (13-61); SODIUM 139 mmol/L (136-145); TOT PROT 6.5 g/dl (6.4-8.2)
[2018-06-18 09:55] LABS: ALBUMIN 3.7 g/dl (3.4-5.0); BILIRUBIN,DIRECT 0.6 mg/dL (0.0-0.2); MAGNESIUM 2.4 mg/dL (1.8-2.4); TOT PROT 6.5 g/dl (6.4-8.2)
[2018-06-18] MEDS ORDERED: DEXAMETHASONE SOD PHOSPHATE 10 MG/1 ML VIAL IVPB ONE (09:57)
[2018-06-18] MEDS ORDERED: SODIUM CHLORIDE 1,000 ML IV STA (09:58)
[2018-06-18] MEDS ORDERED: ACETAMINOPHEN 325 MG TABLET (FP) PO ONE (10:00)
[2018-06-18] MEDS ORDERED: DEXAMETHASONE SODIUM PHOSPHATE 10 MG, DIPHENHYDRAMINE 50 MG in SODIUM CHLORIDE 100 ML IVPB ONE (10:00)
[2018-06-18] MEDS ORDERED: SODIUM CHLORIDE IVPB ONE (10:30)
[2018-06-18] MEDS ORDERED: RITUXIMAB IVPB ONE (10:30)
[2018-06-18 10:44] LABS: ANISOCYTOSIS 2+; MACROCYTOSIS 2+; PLATELET ESTIMATE NORMAL
[2018-06-18] MEDS ORDERED: POTASSIUM CHLORIDE TABS 20 MEQ TABLET.ER (FP) PO ONE (11:04)
[2018-06-18 18:43] VITALS: BP 116/58; PULSE 59; TEMP 98
== END 2018-06-18 18:45 | disposition home or self-care (01) ==
LOC: JONCCHEMO 07:11 → J7W 09:39 → JONCCHEMO 18:45
PROVIDERS: ATTEND Internal Medicine Hematology & Oncology
DX: D59.1 Other autoimmune hemolytic anemias (principal); Z85.46 Personal history of malignant neoplasm of prostate
CPT/HCPCS: 36415; 80053; 80076; 83735; 85025; 96361; 96367; 96375; 96413; 96415; J1100; J7030; J9312

== ENCOUNTER 2018-06-25 07:16 | Day surgery (SDC) | payer OTHER, BC ==
[2018-06-25] MEDS ORDERED: DEXAMETHASONE SODIUM PHOSPHATE 10 MG, DIPHENHYDRAMINE 50 MG in SODIUM CHLORIDE 100 ML IVPB ONE (08:00)
[2018-06-25] MEDS ORDERED: ACETAMINOPHEN 325 MG TABLET (FP) PO ONE (08:00)
[2018-06-25] MEDS ORDERED: SODIUM CHLORIDE IVPB ONE (08:30)
[2018-06-25] MEDS ORDERED: RITUXIMAB IVPB ONE (08:30)
[2018-06-25 08:47] LABS: BASO % 0.1 % (0-2.0); EOS % 0.3 % (0-4.5); HEMATOCRIT 31.7 % (35.4-49); HEMOGLOBIN 10.7 GM/dL (11.7-16.9); LYMPH % 17.5 % (8-40); MCH 39.8 pg (25.7-33.7); MCHC 33.7 g/dl (32.0-35.9); MEAN CELL VOLUME 118.1 fl (80-96); MEAN PLT VOLUME 7.5 fl (7.5-11.1); NEUT % 74.1 % (42.8-82.8); PLATELET COUNT 214 K/MM3 (134-434); RBC 2.69 M/mm3 (4.00-5.60); RDW 13.8 % (11.9-15.9); WHITE BLOOD COUNT 7.9 K/mm3 (4.0-10.0)
[2018-06-25 09:14] LABS: ALBUMIN 3.6 g/dl (3.4-5.0); BILIRUBIN,DIRECT 0.6 mg/dL (0.0-0.2); BILIRUBIN,TOTAL 1.6 mg/dL (0.2-1); MAGNESIUM 2.2 mg/dL (1.8-2.4); TOT PROT 6.4 g/dl (6.4-8.2)
[2018-06-25 09:15] LABS: ALBUMIN 3.6 g/dl (3.4-5.0); ALK PHOS 68 U/L (45-117); ANION GAP 6 MMOL/L (8-16); BILIRUBIN,TOTAL 1.5 mg/dL (0.2-1); BLOOD UREA NITROGEN 26 mg/dL (7-18); CALCIUM 8.4 mg/dL (8.5-10.1); CHLORIDE 103 mmol/L (98-107); CO2 27 mmol/L (21-32); CREATININE 0.7 mg/dL (0.55-1.3); GLUCOSE,RANDOM 79 mg/dL (74-106); POTASSIUM 3.4 mmol/L (3.5-5.1); SGOT/AST 14 U/L (15-37); SGPT/ALT 25 U/L (13-61); SODIUM 137 mmol/L (136-145); TOT PROT 6.4 g/dl (6.4-8.2)
[2018-06-25] MEDS ORDERED: SODIUM CHLORIDE 500 ML IV STA (10:15)
[2018-06-25] MEDS ORDERED: POTASSIUM CHLORIDE TABS 20 MEQ TABLET.ER (FP) PO ONE (11:00)
[2018-06-25 12:25] LABS: ANISOCYTOSIS 1+; MACROCYTOSIS 1+; PLATELET ESTIMATE NORMAL; TEAR DROP CELLS 1+
[2018-06-25 15:23] VITALS: TEMP 97.5
[2018-06-25 16:19] VITALS: BP 109/53; PULSE 64
== END 2018-06-25 16:40 | disposition home or self-care (01) ==
LOC: JONCCHEMO 07:16 → J7W 10:34 → JONCCHEMO 16:40
PROVIDERS: ATTEND Internal Medicine Hematology & Oncology
DX: D59.1 Other autoimmune hemolytic anemias (principal); Z85.46 Personal history of malignant neoplasm of prostate
CPT/HCPCS: 36415; 80053; 80076; 83735; 85025; 96361; 96367; 96375; 96413; 96415; J7030; J9312

== ENCOUNTER 2018-07-02 05:45 | Day surgery (SDC) | payer OTHER, BC ==
[2018-07-02] MEDS ORDERED: ACETAMINOPHEN 325 MG TABLET (FP) PO ONE (08:00)
[2018-07-02] MEDS ORDERED: DEXAMETHASONE SODIUM PHOSPHATE 10 MG, DIPHENHYDRAMINE 50 MG in SODIUM CHLORIDE 100 ML IVPB ONE (08:00)
[2018-07-02] MEDS ORDERED: RITUXIMAB IVPB ONE (08:30)
[2018-07-02] MEDS ORDERED: SODIUM CHLORIDE IVPB ONE (08:30)
[2018-07-02 09:13] LABS: BASO % 0.4 % (0-2.0); EOS % 0.1 % (0-4.5); HEMATOCRIT 28.4 % (35.4-49); HEMOGLOBIN 9.8 GM/dL (11.7-16.9); LYMPH % 15.5 % (8-40); MCH 38.9 pg (25.7-33.7); MCHC 34.7 g/dl (32.0-35.9); MEAN CELL VOLUME 112.3 fl (80-96); MEAN PLT VOLUME 7.7 fl (7.5-11.1); MONO % 6.4 % (3.8-10.2); NEUT % 77.6 % (42.8-82.8); PLATELET COUNT 175 K/MM3 (134-434); RBC 2.53 M/mm3 (4.00-5.60); RDW 13.2 % (11.9-15.9); WHITE BLOOD COUNT 5.1 K/mm3 (4.0-10.0)
[2018-07-02 10:13] LABS: ALBUMIN 3.6 g/dl (3.4-5.0); ANION GAP 8 MMOL/L (8-16); BLOOD UREA NITROGEN 24 mg/dL (7-18); CALCIUM 8.1 mg/dL (8.5-10.1); CHLORIDE 104 mmol/L (98-107); CO2 26 mmol/L (21-32); CREATININE 0.8 mg/dL (0.55-1.3); GLUCOSE,RANDOM 83 mg/dL (74-106); POTASSIUM 3.7 mmol/L (3.5-5.1); SGOT/AST 36 U/L (15-37); SGPT/ALT 40 U/L (13-61); SODIUM 138 mmol/L (136-145)
[2018-07-02 10:30] LABS: ALBUMIN 3.7 g/dl (3.4-5.0); BILIRUBIN,DIRECT 0.8 mg/dL (0.0-0.2); BILIRUBIN,TOTAL 2.7 mg/dL (0.2-1); TOT PROT 6.6 g/dl (6.4-8.2)
[2018-07-02 11:27] LABS: ANISOCYTOSIS 1+; MACROCYTOSIS 2+; PLATELET ESTIMATE NORMAL; TEAR DROP CELLS 1+
[2018-07-02 12:19] LABS: ALK PHOS 81 U/L (45-117); BILIRUBIN,TOTAL 2.7 mg/dL (0.2-1); TOT PROT 6.5 g/dl (6.4-8.2)
[2018-07-02 18:04] VITALS: BP 121/56; PULSE 74; TEMP 98.3
== END 2018-07-02 15:45 | disposition home or self-care (01) ==
LOC: JONCNONCHE 05:45 → JONCCHEMO 05:45 → J7W 10:17 → JONCCHEMO 15:45
PROVIDERS: ATTEND Internal Medicine Hematology & Oncology
DX: D59.1 Other autoimmune hemolytic anemias (principal)
CPT/HCPCS: 36415; 80053; 80076; 83735; 85025; 96367; 96375; 96413; 96415; J7030; J9312

== ENCOUNTER 2018-07-09 07:12 | Day surgery (SDC) | payer OTHER, BC ==
[2018-07-09] MEDS ORDERED: DEXAMETHASONE SODIUM PHOSPHATE 10 MG, DIPHENHYDRAMINE 50 MG in SODIUM CHLORIDE 100 ML IVPB ONE (08:00)
[2018-07-09] MEDS ORDERED: ACETAMINOPHEN 325 MG TABLET (FP) PO ONE (08:00)
[2018-07-09] MEDS ORDERED: RITUXIMAB IVPB ONE (08:30)
[2018-07-09] MEDS ORDERED: SODIUM CHLORIDE IVPB ONE (08:30)
[2018-07-09 09:08] LABS: BASO % 0.3 % (0-2.0); EOS % 0.5 % (0-4.5); HEMATOCRIT 31.6 % (35.4-49); HEMOGLOBIN 10.6 GM/dL (11.7-16.9); LYMPH % 18.8 % (8-40); MCH 37.7 pg (25.7-33.7); MCHC 33.4 g/dl (32.0-35.9); MEAN CELL VOLUME 112.9 fl (80-96); MEAN PLT VOLUME 7.5 fl (7.5-11.1); MONO % 6.4 % (3.8-10.2); PLATELET COUNT 227 K/MM3 (134-434); RDW 14.3 % (11.9-15.9); WHITE BLOOD COUNT 5.7 K/mm3 (4.0-10.0)
[2018-07-09 09:29] LABS: ALBUMIN 3.7 g/dl (3.4-5.0); ALK PHOS 80 U/L (45-117); ANION GAP 6 MMOL/L (8-16); BILIRUBIN,DIRECT 0.4 mg/dL (0.0-0.2); BILIRUBIN,TOTAL 1.3 mg/dL (0.2-1); BLOOD UREA NITROGEN 16 mg/dL (7-18); CALCIUM 8.3 mg/dL (8.5-10.1); CHLORIDE 105 mmol/L (98-107); CO2 28 mmol/L (21-32); CREATININE 0.8 mg/dL (0.55-1.3); GLUCOSE,RANDOM 82 mg/dL (74-106); POTASSIUM 3.7 mmol/L (3.5-5.1); SGOT/AST 16 U/L (15-37); SGPT/ALT 35 U/L (13-61); SODIUM 139 mmol/L (136-145); TOT PROT 6.6 g/dl (6.4-8.2)
[2018-07-09 11:03] LABS: LDH 313 U/L (87-246)
[2018-07-09 13:44] LABS: ANISOCYTOSIS 1+; MACROCYTOSIS 1+; OVALOCYTE 1+; PLATELET ESTIMATE NORMAL; TEAR DROP CELLS 1+
[2018-07-09 14:09] LABS: RETICULOCYTES 6.59 % (0.5-1.5)
[2018-07-09 15:25] VITALS: TEMP 97.3
[2018-07-09 15:26] VITALS: BP 126/61; PULSE 61
== END 2018-07-09 14:30 | disposition home or self-care (01) ==
LOC: JONCCHEMO 07:12 → J7W 10:26 → JONCCHEMO 14:30
PROVIDERS: ATTEND Internal Medicine Hematology & Oncology
DX: D59.1 Other autoimmune hemolytic anemias (principal)
CPT/HCPCS: 36415; 80053; 80076; 83010; 83615; 83735; 85025; 85044; 96367; 96375; 96413; 96415; J7030; J9312

== ENCOUNTER 2020-08-17 06:34 | Day surgery (SDC) | payer OTHER, BC ==
[2020-08-17] MEDS ORDERED: DENOSUMAB 60 MG/ML DISP.SYRIN SQ ONE ×2 (09:00)
[2020-08-17 13:28] LABS: BASO % 0.3 % (0-2.0); EOS % 0.6 % (0-4.5); HEMATOCRIT 33.7 % (35.4-49); HEMOGLOBIN 11.4 GM/dL (11.7-16.9); LYMPH % 19.1 % (8-40); MCH 36.2 pg (25.7-33.7); MEAN CELL VOLUME 106.5 fl (80-96); MEAN PLT VOLUME 7.9 fl (7.5-11.1); MONO % 5.6 % (3.8-10.2); NEUT % 74.4 % (42.8-82.8); PLATELET COUNT 201 K/MM3 (134-434); RBC 3.16 M/mm3 (4.00-5.60); RDW 12.8 % (11.9-15.9); WHITE BLOOD COUNT 5.2 K/mm3 (4.0-10.0)
[2020-08-17 13:53] LABS: PLATELET ESTIMATE NORMAL
[2020-08-17 13:54] LABS: ALBUMIN 3.7 g/dl (3.4-5.0); BLOOD UREA NITROGEN 16.4 mg/dL (7-18); CALCIUM 8.8 mg/dL (8.5-10.1)
[2020-08-17 13:57] LABS: CREATININE 0.8 mg/dL (0.55-1.3)
[2020-08-17 13:59] LABS: BILIRUBIN,TOTAL 1.2 mg/dL (0.2-1); TOT PROT 6.5 g/dl (6.4-8.2)
[2020-08-17 14:49] LABS: ANISOCYTOSIS 1+; MACROCYTOSIS 1+
[2020-08-17 15:32] VITALS: BP 138/57; PULSE 71; TEMP 98.4
== END 2020-08-17 14:40 | disposition home or self-care (01) ==
LOC: JONCCHEMO 06:34
PROVIDERS: ATTEND Internal Medicine Hematology & Oncology
PROC: 3E013GC Introduction of Other Therapeutic Substance into Subcutaneous Tissue, Percutaneous Approach (ICD-10-PCS; principal; 2020-08-17)
DX: M81.8 Other osteoporosis without current pathological fracture (principal); D59.10 Autoimmune hemolytic anemia, unspecified; T38.0X5A Adverse effect of glucocorticoids and synthetic analogues, initial encounter
CPT/HCPCS: 36415; 80053; 85025; 96372; J0897

== ENCOUNTER 2021-04-19 08:06 | Day surgery (SDC) | payer OTHER, BC ==
[2021-04-19 13:42] LABS: BASO % 0.2 % (0-2.0); EOS % 0.1 % (0-4.5); HEMATOCRIT 32.9 % (35.4-49); HEMOGLOBIN 11.3 GM/dL (11.7-16.9); LYMPH % 10.3 % (8-40); MCH 35.5 pg (25.7-33.7); MCHC 34.4 g/dl (32.0-35.9); MEAN CELL VOLUME 103.3 fl (80-96); MEAN PLT VOLUME 7.5 fl (7.5-11.1); MONO % 3.4 % (3.8-10.2); PLATELET COUNT 198 10^3/uL (134-434); RBC 3.19 M/mm3 (4.00-5.60); RDW 13.7 % (11.9-15.9); WHITE BLOOD COUNT 4.7 K/mm3 (4.0-10.0)
[2021-04-19 14:12] LABS: ALBUMIN 3.6 g/dl (3.4-5.0); CALCIUM 8.7 mg/dL (8.5-10.1)
[2021-04-19 14:13] LABS: BLOOD UREA NITROGEN 18.4 mg/dL (7-18)
[2021-04-19 14:16] LABS: CREATININE 0.8 mg/dL (0.55-1.3)
[2021-04-19 14:17] LABS: BILIRUBIN,TOTAL 1.8 mg/dL (0.2-1); TOT PROT 6.7 g/dl (6.4-8.2)
[2021-04-19] MEDS ORDERED: DENOSUMAB 120 MG/1.7 ML VIAL SQ ONE (15:28)
[2021-04-19] MEDS ORDERED: DENOSUMAB 60 MG/ML DISP.SYRIN SQ ONE (16:15)
[2021-04-19 16:51] VITALS: BP 136/72; PULSE 81; TEMP 97.2
== END 2021-04-19 16:10 | disposition home or self-care (01) ==
LOC: JONCCHEMO 08:06
PROVIDERS: ATTEND Internal Medicine Hematology & Oncology
PROC: 3E013GC Introduction of Other Therapeutic Substance into Subcutaneous Tissue, Percutaneous Approach (ICD-10-PCS; principal; 2021-04-19)
DX: D59.10 Autoimmune hemolytic anemia, unspecified (principal)
CPT/HCPCS: 36415; 80053; 85025; 96372; J0897

== ENCOUNTER 2021-05-24 12:45 | Inpatient (IN) | payer OTHER, BC ==
[2021-05-24 14:36] LABS: PH,URINE 6.5 (5.0-8.0); URINE APPEARANCE CLEAR; URINE BILIRUBIN NEGATIVE (NEGATIVE); URINE COLOR YELLOW; URINE GLUCOSE (UA) NEGATIVE (NEGATIVE); URINE KETONE TRACE (NEGATIVE); URINE LEUK ESTERASE NEGATIVE (NEGATIVE); URINE NITRITE NEGATIVE (NEGATIVE); URINE PROTEIN NEGATIVE (NEGATIVE)
[2021-05-24 15:03] LABS: INR 1.23 (0.83-1.09); PROTHROMBIN TIME (PATIENT) 14.2 SEC (9.7-13.0)
[2021-05-24 15:05] LABS: ACTIVATED PTT 26.3 SECONDS (25.2-36.5)
[2021-05-24] MEDS ORDERED: SOTROVIMAB 500 MG in SODIUM CHLORIDE 100 ML IVPB ONE (17:20)
[2021-05-24] MEDS ORDERED: POTASSIUM CHLORIDE TABS 20 MEQ TABLET.ER (FP) PO ONE ×2 (17:39→18:18)
[2021-05-24 20:07] LABS: HEMATOCRIT 25.8 % (35.4-49); HEMOGLOBIN 8.6 GM/dL (11.7-16.9); MCH 34.9 pg (25.7-33.7); MCHC 33.3 g/dl (32.0-35.9); MEAN CELL VOLUME 104.8 fl (80-96); MEAN PLT VOLUME 7.7 fl (7.5-11.1); PLATELET COUNT 160 10^3/uL (134-434); RBC 2.46 M/mm3 (4.00-5.60); RDW 14.3 % (11.9-15.9)
[2021-05-25 03:50] VITALS: BMI 26.3
[2021-05-25 09:10] LABS: HEMATOCRIT 25.2 % (35.4-49); HEMOGLOBIN 8.2 GM/dL (11.7-16.9); MCH 34.7 pg (25.7-33.7); MCHC 32.7 g/dl (32.0-35.9); MEAN CELL VOLUME 105.9 fl (80-96); PLATELET COUNT 157 10^3/uL (134-434); RBC 2.38 M/mm3 (4.00-5.60); RDW 14.3 % (11.9-15.9)
[2021-05-25 09:24] LABS: WHITE BLOOD COUNT 1.3 K/mm3 (4.0-10.0)
[2021-05-25] MEDS: FOLIC ACID 1 MG TABLET (FP) PO SCH (09:43)
[2021-05-25] MEDS: PANTOPRAZOLE 40 MG TABLET PO SCH (09:43)
[2021-05-25 09:48] LABS: BILIRUBIN,DIRECT 0.7 mg/dL (0.0-0.2)
[2021-05-25 09:54] LABS: ALBUMIN 2.9 g/dl (3.4-5.0)
[2021-05-25 09:55] LABS: BLOOD UREA NITROGEN 17.2 mg/dL (7-18); CREATININE 0.7 mg/dL (0.55-1.3)
[2021-05-25 09:56] LABS: BILIRUBIN,TOTAL 1.6 mg/dL (0.2-1); CALCIUM 7.5 mg/dL (8.5-10.1); TOT PROT 5.2 g/dl (6.4-8.2)
[2021-05-25] MEDS ORDERED: predniSONE 10 MG TABLET (UD) PO SCH (10:00)
[2021-05-25 11:29] LABS: ANISOCYTOSIS 1+; MACROCYTOSIS 1+; PLATELET ESTIMATE NORMAL
[2021-05-25] MEDS ORDERED: predniSONE 5 MG TABLET (UD) PO ONE (11:40)
[2021-05-25] MEDS: ENOXAPARIN NA (PORCINE) 40 MG/0.4 ML DISP.SYRIN SQ SCH (12:50)
[2021-05-25 14:39] LABS: BILIRUBIN,DIRECT 0.7 mg/dL (0.0-0.2)
[2021-05-25] MEDS ORDERED: ACETAMINOPHEN 325 MG TABLET (FP) PO PRN (14:56)
[2021-05-26] MEDS: FOLIC ACID 1 MG TABLET (FP) PO SCH (10:12)
[2021-05-26] MEDS: ENOXAPARIN NA (PORCINE) 40 MG/0.4 ML DISP.SYRIN SQ SCH (10:12)
[2021-05-26] MEDS: PANTOPRAZOLE 40 MG TABLET PO SCH (10:12)
[2021-05-26] MEDS: predniSONE 5 MG TABLET (UD) PO SCH (10:13)
[2021-05-26] MEDS: ATOVAQUONE 750 MG/5 ML (UNIT-DOSE PACKAGING) PO SCH (10:13)
[2021-05-26] MEDS: PHENYLEPHRINE HCL/COCOA BUTTER SUPPOSITORY RC SCH (10:13)
[2021-05-26] MEDS: CALCIUM 500MG/VIT-D 200 UNITS COMBO TABLET (FP) PO SCH (11:39)
[2021-05-26 11:48] LABS: BASO % 0.3 % (0-2.0); EOS % 0.1 % (0-4.5); HEMATOCRIT 24.8 % (35.4-49); LYMPH % 34.4 % (8-40); MCH 34.5 pg (25.7-33.7); MCHC 32.5 g/dl (32.0-35.9); MEAN CELL VOLUME 106.2 fl (80-96); MEAN PLT VOLUME 8.2 fl (7.5-11.1); MONO % 9.4 % (3.8-10.2); NEUT % 55.8 % (42.8-82.8); PLATELET COUNT 170 10^3/uL (134-434); RBC 2.33 M/mm3 (4.00-5.60)
[2021-05-26 12:13] LABS: CALCIUM 7.6 mg/dL (8.5-10.1)
[2021-05-26 12:14] LABS: ALBUMIN 2.7 g/dl (3.4-5.0); MAGNESIUM 2.3 mg/dL (1.8-2.4)
[2021-05-26 12:17] LABS: CREATININE 0.6 mg/dL (0.55-1.3); PHOSPHOROUS 1.9 mg/dL (2.5-4.9)
[2021-05-26 12:18] LABS: BILIRUBIN,TOTAL 1.6 mg/dL (0.2-1)
[2021-05-26 12:19] LABS: TOT PROT 5.1 g/dl (6.4-8.2)
[2021-05-26 13:06] LABS: HIV INTERPRETATION NEGATIVE (NEGATIVE)
[2021-05-26 13:42] LABS: ANISOCYTOSIS 2+; MACROCYTOSIS 2+; PLATELET ESTIMATE NORMAL
[2021-05-26] MEDS ORDERED: POTASSIUM CHLORIDE ORAL LIQUID 20 MEQ/15 ML PO ONE (14:44)
[2021-05-26] MEDS ORDERED: REMDESIVIR 200 MG in SODIUM CHLORIDE 250 ML IVPB ONE (15:00)
[2021-05-26] MEDS: SENNOSIDES 8.6MG TABLET (FP) PO SCH (21:21)
[2021-05-27] MEDS: PHENYLEPHRINE HCL/COCOA BUTTER SUPPOSITORY RC SCH (08:16)
[2021-05-27 09:58] LABS: BASO % 0.1 % (0-2.0); EOS % 0.1 % (0-4.5); HEMOGLOBIN 8.6 GM/dL (11.7-16.9); LYMPH % 20.2 % (8-40); MCH 35.2 pg (25.7-33.7); MCHC 32.9 g/dl (32.0-35.9); MONO % 7.9 % (3.8-10.2); NEUT % 71.7 % (42.8-82.8); PLATELET COUNT 174 10^3/uL (134-434); RBC 2.43 M/mm3 (4.00-5.60); RDW 14.6 % (11.9-15.9); WHITE BLOOD COUNT 2.7 K/mm3 (4.0-10.0)
[2021-05-27] MEDS ORDERED: CHOLECALCIFEROL (VIT D3) 1,000 UNIT (25 MCG) TABLET PO SCH (10:00)
[2021-05-27 10:26] LABS: ALBUMIN 2.9 g/dl (3.4-5.0)
[2021-05-27 10:28] LABS: TOT PROT 5.4 g/dl (6.4-8.2)
[2021-05-27 10:29] LABS: CREATININE 0.7 mg/dL (0.55-1.3)
[2021-05-27 10:30] LABS: BLOOD UREA NITROGEN 20.3 mg/dL (7-18)
[2021-05-27 10:31] LABS: BILIRUBIN,TOTAL 1.2 mg/dL (0.2-1)
[2021-05-27] MEDS: PANTOPRAZOLE SOD 40 MG SUSPENSION PACKET PO SCH (10:35)
[2021-05-27] MEDS: FOLIC ACID 1 MG TABLET (FP) PO SCH (10:35)
[2021-05-27] MEDS: ENOXAPARIN NA (PORCINE) 40 MG/0.4 ML DISP.SYRIN SQ SCH (10:35)
[2021-05-27] MEDS: POLYETHYLENE GLYCOL (HEALTHYLAX) 3350 17 GM PACKET PO SCH ×2 (10:36→10:50)
[2021-05-27] MEDS: CALCIUM 500MG/VIT-D 200 UNITS COMBO TABLET (FP) PO SCH (10:37)
[2021-05-27] MEDS: predniSONE 5 MG TABLET (UD) PO SCH (10:37)
[2021-05-27] MEDS: ATOVAQUONE 750 MG/5 ML (UNIT-DOSE PACKAGING) PO SCH (10:37)
[2021-05-27 11:19] LABS: MAGNESIUM 2.1 mg/dL (1.8-2.4)
[2021-05-27 11:22] LABS: PHOSPHOROUS 2.2 mg/dL (2.5-4.9)
[2021-05-27 11:35] LABS: WHITE BLOOD COUNT 1.5 K/mm3 (4.0-10.0)
[2021-05-27] MEDS ORDERED: POTASSIUM PHOSPHATE 15 MM in DEXTROSE 5%-WATER - 250 ML IVPB ONE (15:00)
[2021-05-27] MEDS: REMDESIVIR 100 MG in SODIUM CHLORIDE 250 ML IVPB SCH (15:07)
[2021-05-27] MEDS: SENNOSIDES 8.6MG TABLET (FP) PO SCH (21:38)
[2021-05-28] MEDS: PHENYLEPHRINE HCL/COCOA BUTTER SUPPOSITORY RC SCH (09:51)
[2021-05-28] MEDS: PANTOPRAZOLE SOD 40 MG SUSPENSION PACKET PO SCH (11:13)
[2021-05-28] MEDS: ENOXAPARIN NA (PORCINE) 40 MG/0.4 ML DISP.SYRIN SQ SCH (11:13)
[2021-05-28] MEDS: POLYETHYLENE GLYCOL (HEALTHYLAX) 3350 17 GM PACKET PO SCH (11:13)
[2021-05-28] MEDS: predniSONE 5 MG TABLET (UD) PO SCH (11:14)
[2021-05-28] MEDS: CALCIUM 500MG/VIT-D 200 UNITS COMBO TABLET (FP) PO SCH (11:14)
[2021-05-28] MEDS: ATOVAQUONE 750 MG/5 ML (UNIT-DOSE PACKAGING) PO SCH (11:14)
[2021-05-28] MEDS: FOLIC ACID 1 MG TABLET (FP) PO SCH (11:17)
[2021-05-28 12:42] LABS: BASO % 0.1 % (0-2.0); EOS % 0.3 % (0-4.5); HEMATOCRIT 26.4 % (35.4-49); HEMOGLOBIN 8.8 GM/dL (11.7-16.9); LYMPH % 24.7 % (8-40); MCH 35.3 pg (25.7-33.7); MCHC 33.3 g/dl (32.0-35.9); MEAN CELL VOLUME 106.2 fl (80-96); MEAN PLT VOLUME 8.4 fl (7.5-11.1); MONO % 9.3 % (3.8-10.2); NEUT % 65.6 % (42.8-82.8); PLATELET COUNT 238 10^3/uL (134-434); RBC 2.48 M/mm3 (4.00-5.60); WHITE BLOOD COUNT 3.9 K/mm3 (4.0-10.0)
[2021-05-28 13:12] LABS: BLOOD UREA NITROGEN 20.6 mg/dL (7-18); CALCIUM 7.9 mg/dL (8.5-10.1); MAGNESIUM 2.2 mg/dL (1.8-2.4)
[2021-05-28 13:15] LABS: CREATININE 0.6 mg/dL (0.55-1.3); PHOSPHOROUS 2.3 mg/dL (2.5-4.9)
[2021-05-28 13:28] LABS: ANISOCYTOSIS 2+; MACROCYTOSIS 2+; PLATELET ESTIMATE NORMAL
[2021-05-28] MEDS: REMDESIVIR 100 MG in SODIUM CHLORIDE 250 ML IVPB SCH (19:39)
[2021-05-28] MEDS: SENNOSIDES 8.6MG TABLET (FP) PO SCH (22:15)
[2021-05-28] MEDS: NAPH,MB-DB/K PH,MBDB POWDER PACKET PO SCH (22:15)
[2021-05-29 09:42] LABS: BASO % 0.1 % (0-2.0); EOS % 0.2 % (0-4.5); HEMATOCRIT 28.8 % (35.4-49); HEMOGLOBIN 9.5 GM/dL (11.7-16.9); MCH 35.1 pg (25.7-33.7); MCHC 33.1 g/dl (32.0-35.9); MEAN CELL VOLUME 105.9 fl (80-96); MEAN PLT VOLUME 8.2 fl (7.5-11.1); MONO % 7.7 % (3.8-10.2); PLATELET COUNT 244 10^3/uL (134-434); RBC 2.72 M/mm3 (4.00-5.60); RDW 14.6 % (11.9-15.9)
[2021-05-29 09:58] LABS: RETICULOCYTES 4.95 % (0.5-1.5)
[2021-05-29 10:13] LABS: BLOOD UREA NITROGEN 15.4 mg/dL (7-18)
[2021-05-29 10:16] LABS: CREATININE 0.6 mg/dL (0.55-1.3); PHOSPHOROUS 2.4 mg/dL (2.5-4.9)
[2021-05-29 10:17] LABS: CALCIUM 8.1 mg/dL (8.5-10.1); MAGNESIUM 2.2 mg/dL (1.8-2.4)
[2021-05-29] MEDS: FOLIC ACID 1 MG TABLET (FP) PO SCH (10:19)
[2021-05-29] MEDS: ENOXAPARIN NA (PORCINE) 40 MG/0.4 ML DISP.SYRIN SQ SCH (10:21)
[2021-05-29] MEDS: POLYETHYLENE GLYCOL (HEALTHYLAX) 3350 17 GM PACKET PO SCH (10:22)
[2021-05-29] MEDS: ATOVAQUONE 750 MG/5 ML (UNIT-DOSE PACKAGING) PO SCH (10:22)
[2021-05-29] MEDS: NAPH,MB-DB/K PH,MBDB POWDER PACKET PO SCH ×2 (10:22→22:25)
[2021-05-29] MEDS: predniSONE 5 MG TABLET (UD) PO SCH (10:22)
[2021-05-29] MEDS: CALCIUM 500MG/VIT-D 200 UNITS COMBO TABLET (FP) PO SCH (10:22)
[2021-05-29] MEDS: PANTOPRAZOLE SOD 40 MG SUSPENSION PACKET PO SCH (10:23)
[2021-05-29] MEDS: PHENYLEPHRINE HCL/COCOA BUTTER SUPPOSITORY RC SCH (10:34)
[2021-05-29] MEDS: REMDESIVIR 100 MG in SODIUM CHLORIDE 250 ML IVPB SCH (14:48)
[2021-05-29] MEDS: SENNOSIDES 8.6MG TABLET (FP) PO SCH (22:25)
[2021-05-30] MEDS: PHENYLEPHRINE HCL/COCOA BUTTER SUPPOSITORY RC SCH (09:14)
[2021-05-30] MEDS: FOLIC ACID 1 MG TABLET (FP) PO SCH (09:14)
[2021-05-30] MEDS: predniSONE 5 MG TABLET (UD) PO SCH (09:15)
[2021-05-30] MEDS: CALCIUM 500MG/VIT-D 200 UNITS COMBO TABLET (FP) PO SCH (09:15)
[2021-05-30] MEDS: POLYETHYLENE GLYCOL (HEALTHYLAX) 3350 17 GM PACKET PO SCH (09:15)
[2021-05-30] MEDS: ENOXAPARIN NA (PORCINE) 40 MG/0.4 ML DISP.SYRIN SQ SCH (09:15)
[2021-05-30] MEDS: ATOVAQUONE 750 MG/5 ML (UNIT-DOSE PACKAGING) PO SCH (09:15)
[2021-05-30] MEDS: PANTOPRAZOLE SOD 40 MG SUSPENSION PACKET PO SCH (09:16)
[2021-05-30 09:39] LABS: BASO % 0.2 % (0-2.0); EOS % 0.4 % (0-4.5); HEMATOCRIT 28.9 % (35.4-49); HEMOGLOBIN 9.5 GM/dL (11.7-16.9); LYMPH % 27.3 % (8-40); MCH 35.1 pg (25.7-33.7); MCHC 32.8 g/dl (32.0-35.9); MEAN PLT VOLUME 8.5 fl (7.5-11.1); MONO % 10.5 % (3.8-10.2); NEUT % 61.6 % (42.8-82.8); PLATELET COUNT 266 10^3/uL (134-434); RDW 14.7 % (11.9-15.9); WHITE BLOOD COUNT 3.3 K/mm3 (4.0-10.0)
[2021-05-30 10:02] LABS: CALCIUM 7.9 mg/dL (8.5-10.1); MAGNESIUM 2.3 mg/dL (1.8-2.4)
[2021-05-30 10:05] LABS: CREATININE 0.6 mg/dL (0.55-1.3); PHOSPHOROUS 2.7 mg/dL (2.5-4.9)
[2021-05-30] MEDS: POTASSIUM PHOSPHATE 30 MM in SODIUM CHLORIDE 500 ML IVPB ONE ×2 (11:16→12:52)
[2021-05-30] MEDS: REMDESIVIR 100 MG in SODIUM CHLORIDE 250 ML IVPB SCH (14:38)
[2021-05-30 15:31] VITALS: BP 110/55; PULSE 72; TEMP 99.2
== END 2021-05-30 16:37 | disposition home or self-care (01) | DRG 177 ==
LOC: JER 12:45 → JERBED 17:04 → OBSVTOIN 17:04 → J5S 20:56
PROVIDERS: ADMIT Internal Medicine; ATTEND Internal Medicine
PROC: XW033H6 Introduction of Other New Technology Monoclonal Antibody into Peripheral Vein, Percutaneous Approach, New Technology Group 6 (ICD-10-PCS; principal; 2021-05-24)
PROC: XW033E5 Introduction of Remdesivir Anti-infective into Peripheral Vein, Percutaneous Approach, New Technology Group 5 (ICD-10-PCS; 2021-05-24)
DX: U07.1 COVID-19 (principal); J12.82 Pneumonia due to coronavirus disease 2019; D59.10 Autoimmune hemolytic anemia, unspecified; D72.819 Decreased white blood cell count, unspecified; K21.9 Gastro-esophageal reflux disease without esophagitis; E87.6 Hypokalemia
CPT/HCPCS: 36415; 71045-TC-FY; 71260-TC; 74177-TC; 80048; 80053; 81003; 82248; 82272; 82550; 82595; 82607; 82728; 82746; 82962; 83010; 83615; 83735; 83880; 84100; 84484; 84550; 85025; 85027; 85045; 85379; 85610; 85651; 85730; 86140; 86157; 86850; 86870; 86880; 86900; 86901; 86902; 87040; 87086; 87389; 87804; 93005; 93010; 97116-GP; 97162-GP; 99285-25; C9399; C9803; M0247; Q0247; Q9967; U0003; U0005

== ENCOUNTER 2021-08-29 04:49 | Day surgery (SDC) | payer OTHER, BC ==
[2021-08-28 08:42] VITALS: BMI 26.5
[2021-08-29] MEDS ORDERED: MIDAZOLAM HCL 2 MG/2 ML SINGLE DOSE VIAL IVPUSH ONE (12:48)
[2021-08-29 13:16] VITALS: TEMP 97.5
[2021-08-29 14:04] VITALS: BP 109/64; PULSE 52
== END 2021-08-29 14:45 | disposition home or self-care (01) ==
LOC: JRADIR 04:49
PROVIDERS: ATTEND Internal Medicine Hematology & Oncology
PROC: 07DR3ZX Extraction of Iliac Bone Marrow, Percutaneous Approach, Diagnostic (ICD-10-PCS; principal; 2021-08-29)
PROC: BQ20ZZZ Computerized Tomography (CT Scan) of Right Hip (ICD-10-PCS; 2021-08-29)
DX: D64.9 Anemia, unspecified (principal); C61 Malignant neoplasm of prostate
CPT/HCPCS: 20225; 88300-TC

== ENCOUNTER 2021-11-15 07:23 | Day surgery (SDC) | payer OTHER, BC ==
[2021-11-15] MEDS ORDERED: DENOSUMAB 60 MG/ML DISP.SYRIN SQ ONE (10:00)
[2021-11-15 13:12] LABS: BASO % 0.3 % (0-2.0); EOS % 0.2 % (0-4.5); HEMOGLOBIN 11.3 GM/dL (11.7-16.9); LYMPH % 16.3 % (8-40); MCH 28.6 pg (25.7-33.7); MCHC 32.4 g/dl (32.0-35.9); MEAN CELL VOLUME 88.2 fl (80-96); MEAN PLT VOLUME 7.6 fl (7.5-11.1); MONO % 5.3 % (3.8-10.2); NEUT % 77.9 % (42.8-82.8); PLATELET COUNT 248 10^3/uL (134-434); RBC 3.96 M/mm3 (4.00-5.60); RDW 16.3 % (11.9-15.9); WHITE BLOOD COUNT 6.7 K/mm3 (4.0-10.0)
[2021-11-15 13:38] LABS: CHLORIDE 109 mmol/L (98-107); SODIUM 142 mmol/L (136-145)
[2021-11-15 13:40] LABS: ALBUMIN 3.6 g/dl (3.4-5.0); ANION GAP 7 MMOL/L (8-16); CALCIUM 8.7 mg/dL (8.5-10.1); CO2 26 mmol/L (21-32); GLUCOSE,RANDOM 113 mg/dL (74-106)
[2021-11-15 13:41] LABS: BLOOD UREA NITROGEN 28.3 mg/dL (7-18)
[2021-11-15 13:43] LABS: SGPT/ALT 24 U/L (13-61)
[2021-11-15 13:44] LABS: CREATININE 0.7 mg/dL (0.55-1.3); SGOT/AST 16 U/L (15-37)
[2021-11-15 13:45] LABS: BILIRUBIN,TOTAL 0.5 mg/dL (0.2-1); TOT PROT 6.8 g/dl (6.4-8.2)
[2021-11-15 13:46] LABS: ALK PHOS 64 U/L (45-117)
[2021-11-15 13:47] LABS: LDH 190 U/L (87-246)
[2021-11-15 17:54] VITALS: BP 137/65; PULSE 67; TEMP 97.9
== END 2021-11-15 15:50 | disposition home or self-care (01) ==
LOC: JONCCHEMO 07:23
PROVIDERS: ATTEND Internal Medicine Hematology & Oncology
PROC: 3E013GC Introduction of Other Therapeutic Substance into Subcutaneous Tissue, Percutaneous Approach (ICD-10-PCS; principal; 2021-11-15)
DX: M81.0 Age-related osteoporosis without current pathological fracture (principal)
CPT/HCPCS: 36415; 80053; 82746; 83615; 85025; 96372; J0897